=== PATIENT | male | born 1930 | race Caucasian/White ===

== ENCOUNTER 2017-04-24 13:55 | Emergency (ER) | payer MEDICARE, BC ==
[~2017-04-24 13:55] MED LIST: ALPR0.25 PO; APIX5TAB PO; ASPI81TA82 PO; BETH50TA PO; BIOT5000 PO; CALCTAB23 PO; CHRO200C PO; CO Q10CA PO; COLL500C PO; CRES20TA PO; DIGO0.25 PO; FURO1TAB93 PO; LATA.005%O EACH EYE; LEVE250 PO; LEVO50TA4 PO; LISI20 PO; LUTE6TAB PO; MAGN30TA2 PO; MECL25 PO; METO100 PO; MONT10 PO; NITR4.9S3 SL; PANT40IN3 PO; PENI250T PO; POTA-267 PO; SALM50I INH; SPIRCAP INH; VITATAB11 PO
[2017-04-24 13:59] VITALS: BP 144/75; PULSE 80; RESP 16; TEMP 97.9; O2SAT 97
--- NOTE | 2017-04-24 14:33 | PD ---
Physical Exam Time Seen by Provider: 14:32 Narrative 86 y/o male fell yesterday when attempting to prevent his from falling. He has an injury to the proximal L forearm. Vital signs reviewed. Seen at triage desk. Awaiting bed placement. Data Data Last Documented VS Vital Signs Date Time Temp Pulse Resp B/P Pulse Ox O2 Delivery O2 Flow Rate FiO2 04/24/17 13:59 97.9 80 16 144/75 97 Room Air [facility] Medical Record Reviewed: Yes Supervised Visit with DAMON: [place] Apr 24, 2017 14:33
== END 2017-04-24 15:42 | disposition left against medical advice (07) ==
LOC: NED 13:55
DX: S59.912A Unspecified injury of left forearm, initial encounter (principal); W19.XXXA Unspecified fall, initial encounter; Z53.21 Procedure and treatment not carried out due to patient leaving prior to being seen by health care provider
CPT/HCPCS: 99281

== ENCOUNTER 2017-07-20 11:17 | Observation (INO) | payer MEDICARE, BC, OTHER ==
[2017-07-20] VITALS (9 sets, daily range): BP systolic 123–182; BP diastolic 85–120; PULSE 103–116; RESP 13–24; TEMP 97.7–98.6; O2SAT 95–99
[~2017-07-20] VITALS: Ht 154.9 cm; Wt 67.2 kg
--- NOTE | 2017-07-20 11:41 | PD ---
HPI Chief Complaint: Respiratory Distress Time Seen by Provider: 11:25 Travel History International Travel<30 days: No Contact w/Intl Traveler<30days: No Traveled to known affect area: No History of Present Illness HPI [facility]. He has history of A. fib. At times he is short of breath. He denies productive cough or fever or chest pain. Severity is moderate. No alleviating factors. Duration one day. Symptoms are exacerbated by exertion. PFSH Past Medical History Hx Anticoagulant Therapy: Yes Arthritis: Yes (hands) Atrial Fibrillation: Yes Autoimmune Disease: No Anxiety: No Depression: Yes Heart Rhythm Problems: Yes (AFIB) Cancer: Yes (PROSTATE 1989 SKIN 1990) Cardiac Catheterization: Yes Cardiovascular Problems: Yes (AFIB) High Cholesterol: Yes Chemotherapy: Yes Congestive Heart Failure: Yes COPD: Yes Cerebrovascular Accident: Yes Coronary Artery Disease: Yes (1999) Diabetes: Yes Diminished Hearing: Yes (BILATERAL) Endocrine: No Gastrointestinal Disorders: Yes (GASTROPORESIS) GERD: Yes Glaucoma: Yes Genitourinary: Yes (RENAL ARTERY BLOCKED 95 % TO HAVE STENT IMPLANT) Hypertension: Yes Immune Disorder: No Implanted Vascular Access Dvce: Yes Musculoskeletal: Yes (OSTEOPOROSIS) Neurologic: Yes Psychiatric: Yes Reproductive: Yes (VASECTOMY 1962) Respiratory: Yes Integumentary: Yes (SKIN CA 1990) Immunizations Current: No Migraines: No Radiation Therapy: Yes (PROSTATE CA 1989) Seizures: Yes (On Keppra) Sleep Apnea: Yes Thyroid Disease: Yes Past Surgical History Body Medical Devices: rods, pins in r leg Cardiac Surgery: Yes Cholecystectomy: Yes Coronary Artery Bypass Graft: Yes Coronary Stent: Yes (X5) Ear Surgery: Yes (GLAUCOMA) Eye Surgery: Yes (LASER BOTH EYES) Genitourinary Surgery: Yes (RIGHT RENAL ARTERY STENT X2, benign bladder tumor) Oral Surgery: Yes (MAX RIDGE AUGMENTATION) Pacemaker: Yes ([employer] MODEL NUMBER [id number]) Tonsillectomy: Yes Other Surgery: Yes (TURP, RT HIP FX REPAIR) Social History Alcohol Use: No Tobacco Use: No Substance Use: No Allergies-Medications (Allergen,Severity, Reaction): Coded Allergies: diatrizoate meglumine (Unverified Allergy, Severe, 05/27/17) diltiazem (Unverified Allergy, Severe, Swelling, 05/27/17) gadobenic acid (Unverified Allergy, Severe, 05/27/17) gadodiamide (Unverified Allergy, Severe, 05/27/17) gadoteridol (Unverified Allergy, Severe, 05/27/17) iodixanol (Unverified Allergy, Severe, 05/27/17) iohexol (Unverified Allergy, Severe, 05/27/17) Uncoded Allergies: cardi (Allergy, Severe, Swelling, 02/05/13) Reported Meds & Prescriptions Reported Meds & Active Scripts Active Keppra (Levetiracetam) 250 Mg Tab 250 Mg PO BID 30 Days Antivert (Meclizine HCl) 25 Mg Tab 25 Mg PO Q8H PRN 14 Days Metoprolol Tartrate 100 Mg Tab 100 Mg PO BID 30 Days Prinivil 20 mg (Lisinopril) 20 Mg Tab 40 Mg PO DAILY 30 Days Reported Vitamin B Complex (B-Complex Vitamins) Tab 1 Tab PO DAILY Pen Vk (Penicillin V Potassium) 250 Mg Tab 250 Mg PO BID Levothyroxine 50 mcg (Levothyroxine Sodium) 50 Mcg Tab 50 Mcg PO DAILY Calcium 500 + D (Calcium Carbonate-Vitamin D) +D Tab 1 Tab PO DAILY Co Q 10 (Coenzyme Q10 (Ubidecarenone)) Unknown Strength Cap 1 Cap PO DAILY Chromium Picolinate Unknown Strength Tab 1 Tab PO DAILY Collagen Unknown Strength Cap 1 Cap PO DAILY Magnesium (Magnesium Gluconate) Unknown Strength Tab 1 Tab PO DAILY Biotin Unknown Strength Tab 1 Tab PO DAILY Lutein W/Zeaxanthin (Lutein-Zeaxanthin) 1 Tab Tab 1 Tab PO DAILY Pantoprazole Sodium 40 Mg Tab 40 Mg PO DAILY Bethanechol Chloride 50 Mg Tab 50 Mg PO QID Eliquis (Apixaban) 5 Mg Tab 5 Mg PO BID Alprazolam 0.25 Mg Tab 0.25 Mg PO TID PRN Nitrolingual 0.4 Mg Pumpspray (Nitroglycerin) 60 [place]/4.9 Gm [place] 1 [place] SL Q5M MAXIUMUM OF 3 DOSES IN 15 MINUTES.CALL MD IF CHEST PAIN NOT RELIEVED. Montelukast Sodium 10 Mg Tab 10 Mg PO HS Aspir-81 (Aspirin) 81 Mg Tab 81 Mg PO DAILY Digoxin 0.25 mg (Digoxin) 0.25 Mg Tab 0.25 Mg PO DAILY Lasix (Furosemide) 40 Mg Tab 40 Mg PO DAILY Klor-Con 10 (Potassium Chloride) 10 Meq Tab 10 Meq PO DAILY Crestor (Rosuvastatin Calcium) 20 Mg Tab 20 Mg PO HS Xalatan (Latanoprost) 0.005 % Soln 1 Drop EACH EYE HS Spiriva Handihaler (Tiotropium [place]) 18 Mcg Cap 1 Dose INH DAILY Serevent Diskus (Salmeterol Xinafoate) 50 Mcg Inhp 1 Puff INH BID Review of Systems General / Constitutional: No: Fever Eyes: No: Visual changes HENT: No: Headaches Cardiovascular: Positive: Irregular Rhythm, Tachycardia, No: Chest Pain or Discomfort Respiratory: Positive: Shortness of Breath Gastrointestinal: No: Abdominal Pain Genitourinary: No: Dysuria Musculoskeletal: No: Pain Skin: No Rash Neurologic: No: Weakness Psychiatric: No: Depression Endocrine: No: Polydipsia Hematologic/Lymphatic: No: Easy Bruising Physical Exam Narrative GENERAL: Elderly well-developed patient in no apparent distress. SKIN: Focused skin assessment reveals no rash and nodules. Skin is Warm and dry. HEAD: Atraumatic. Normocephalic. EYES: Pupils equal and round. No scleral icterus. No injection or drainage. ENT: No nasal bleeding or discharge. Mucous membranes pink and moist. NECK: Trachea midline. No JVD. CARDIOVASCULAR: Irregularly irregular rhythm. No murmur appreciated. Heart rate variable between 105 and 130 RESPIRATORY: No accessory muscle use. Diminished breath sounds in the bases with some scattered rhonchi . Breath sounds equal bilaterally. GASTROINTESTINAL: Abdomen soft, non-tender, nondistended. Hepatic and splenic margins not palpable. MUSCULOSKELETAL: No obvious deformities. No clubbing. No cyanosis. No pitting edema. NEUROLOGICAL: Awake and alert. No obvious cranial nerve deficits. Motor grossly within normal limits. Normal speech. PSYCHIATRIC: Appropriate mood and affect; insight and judgment reduced . Data Data Last Documented VS Vital Signs Date Time Temp Pulse Resp B/P (MAP) Pulse Ox O2 Delivery O2 Flow Rate FiO2 07/20/17 14:32 104 24 161/87 (111) 96 Room Air 07/20/17 11:26 98.6 Orders Orders Complete Blood Count With Diff (07/20/17 11:34) Basic Metabolic Panel (Bmp) (07/20/17 11:34) Iv Access Insert/Monitor (07/20/17 11:34) Electrocardiogram (07/20/17 11:34) Ecg Monitoring (07/20/17 11:34) Oximetry (07/20/17 11:34) Chest, Single Ap (07/20/17 11:34) Sodium Chloride 0.9% Flush (Ns Flush) (07/20/17 11:45) Metoprolol Tartrate Inj (Lopressor Inj) (07/20/17 11:45) Digoxin (07/20/17 11:41) Furosemide Inj (Lasix Inj) (07/21/17 09:00) Metoprolol Tartrate Inj (Lopressor Inj) (07/20/17 13:00) Furosemide Inj (Lasix Inj) (07/20/17 13:15) Metoprolol Tartrate Inj (Lopressor Inj) (07/20/17 14:15) Labs Laboratory Tests Test 07/20/17 11:43 White Blood Count 9.1 TH/MM3 Red Blood Count 4.19 MIL/MM3 Hemoglobin 13.5 GM/DL Hematocrit 40.1 % Mean Corpuscular Volume 95.8 FL Mean Corpuscular Hemoglobin 32.1 PG Mean Corpuscular Hemoglobin Concent 33.5 % Red Cell Distribution Width 13.8 % Platelet Count 189 TH/MM3 Mean Platelet Volume 9.1 FL Neutrophils (%) (Auto) 74.0 % Lymphocytes (%) (Auto) 14.5 % Monocytes (%) (Auto) 9.1 % Eosinophils (%) (Auto) 1.7 % Basophils (%) (Auto) 0.7 % Neutrophils # (Auto) 6.7 TH/MM3 Lymphocytes # (Auto) 1.3 TH/MM3 Monocytes # (Auto) 0.8 TH/MM3 Eosinophils # (Auto) 0.2 TH/MM3 Basophils # (Auto) 0.1 TH/MM3 CBC Comment DIFF FINAL Differential Comment Blood Urea Nitrogen 14 MG/DL Creatinine 0.56 MG/DL Random Glucose 104 MG/DL Calcium Level 7.6 MG/DL Sodium Level 137 MEQ/L Potassium Level 3.8 MEQ/L Chloride Level 105 MEQ/L Carbon Dioxide Level 24.7 MEQ/L Anion Gap 7 MEQ/L Estimat Glomerular Filtration Rate 137 ML/MIN Digoxin Level LESS THAN 0.1 NG/ML MDM Medical Decision Making Medical Screen Exam Complete: Yes Emergency Medical Condition: Yes Medical Record Reviewed: Yes Differential Diagnosis A. fib with RVR, COPD, CHF Narrative Course I have reviewed the patient's electronic medical record. Reviewed his most recent discharge summary. Patient was here for shortness of breath and 2016. Reviewed his [facility] paperwork and medication lists and last labs which were done about 2 weeks ago IV placed Patient has allergy to Cardizem I gave him a small dose of 1.25 mg IV Lopressor for rate control He is also hypertensive at the same time I reviewed his chest x-ray which suggest minor pulmonary edema I reviewed his EKG which shows A. fib at a rate of 124 Extended cardiac monitoring reveals A. fib with RVR CBC reasonable in all Metabolic profile is normal Digoxin level is negative Given his age I only gave him small doses of Lopressor. A second dose of 1.25 was given I then gave him a dose of 2.5 mg IV Lopressor I will observe him for several hours. His rate is much improved. His A. fib is chronic Currently he is bouncing around in the 90s Stable for outpatient follow-up. He feels well. He is breathing well I did give him 1 dose of IV Lasix He's had no chest discomfort of any type No clinical suspicion of ACS Diagnosis Primary Impression: Atrial fibrillation with RVR Additional Impression: Pulmonary edema Qualified Codes: J81.0 - Acute pulmonary edema Additional Instructions: Follow-up with [facility] physician Med/Other Pt SpecificInfo: Other Disposition: 03 DISCHARGE TO SNF Condition: Stable Rodrigo Garvin MD Jul 20, 2017 11:41
[2017-07-20] MEDS ORDERED: SODIUM CHLORIDE 0.9% FLUSH 10 ML FLUSH IVF PRN (11:45)
[2017-07-20] MEDS ORDERED: METOPROLOL TARTRATE 5 MG/5 ML VIAL IV PUSH ONE ×3 (11:45→14:15)
[2017-07-20 11:57] LABS: AUTOMATED NEUTROPHIL # 6.7 TH/MM3 (1.8-7.7); BASOPHIL # 0.1 TH/MM3 (0-0.2); BASOPHIL % 0.7 % (0.0-2.0); EOSINOPHIL # 0.2 TH/MM3 (0-0.4); EOSINOPHIL % 1.7 % (0.0-4.0); HEMATOCRIT 40.1 % (39.0-51.0); HEMO FLAGS DIFF FINAL; LYMPH % 14.5 % (9.0-44.0); LYMPHOCYTE # 1.3 TH/MM3 (1.0-4.8); MEAN CELL VOLUME 95.8 FL (80.0-100.0); MEAN CORPUSCULAR HEMOGLOBIN 32.1 PG (27.0-34.0); MEAN CORPUSCULAR HGB CONC 33.5 % (32.0-36.0); MONO % 9.1 % (0.0-8.0); PLATELET COUNT 189 TH/MM3 (150-450); RED BLOOD COUNT 4.19 MIL/MM3 (4.50-5.90); RED CELL DISTRIBUTION WIDTH 13.8 % (11.6-17.2); WHITE BLOOD COUNT 9.1 TH/MM3 (4.0-11.0)
--- NOTE | 2017-07-20 12:10 | RADRPT ---
EXAM DATE/TIME: 07/20/2017 11:38 [place] COMPARISON: CHEST SINGLE AP, April 30, 2016, 13:21. INDICATIONS : Short of breath MEDICAL HISTORY : Chronic obstructive pulmonary disease. Congestive heart failure. Cardiovascular disease. Gerd, Tom ts esophagus, A-fib SURGICAL HISTORY : Pacemaker. coronary artery stents ENCOUNTER: Initial ACUITY: 2 weeks PAIN SCORE: 0/10 LOCATION: chest FINDINGS: The heart is enlarged. There are small bilateral effusions and diffuse interstitial prominence sugges ting congestive failure. These findings are new compared to prior dated 04/30/16. The are is a transvenous pacer in place. The bony structures are intact. CONCLUSION: 1. Probable CHF. Antonio Gambino MD on July 20, 2017 at 12:08 Board Certified Radiologist. This report was verified electronically.
[2017-07-20 12:19] LABS: BICARBONATE 24.7 MEQ/L (21.0-32.0); POTASSIUM 3.8 MEQ/L (3.5-5.1)
--- NOTE | 2017-07-20 12:55 | EKG ---
Date Performed: 07/20/2017 Time Performed: 11:34:37 PTAGE: 87 years EKG: ATRIAL FIBRILLATION WITH RAPID VENTRICULAR RESPONSE LOW QRS VOLTAGE IN EXTREMITY LEADS MODE RATE ST DEPRESSION ABNORMAL ECG INTERPRETATION BASED ON A DEFAULT AGE OF 40 YEARS PREVIOUS TRACING : 04/30/2016 13.13 DOCTOR: Heber Herrera Interpretating Date/Time 07/20/2017 12:54:27
[2017-07-20] MEDS ORDERED: FUROSEMIDE 40 MG/4 ML VIAL IV PUSH ONE (13:15)
--- NOTE | 2017-07-20 18:05 | HHI.HP ---
[facility] Gallito Valdez MD Admission Diagnosis afib with RVR, exac of CHF Diagnoses: (1) Atrial fibrillation with RVR Diagnosis: Principal (2) CHF (congestive heart failure) Diagnosis: Secondary Chief Complaint: "Because they ([facility]) sent me in here." Travel History International Travel<30 Days: No Contact w/Intl Traveler <30 Da: No Traveled to Known Affected Are: No History of Present Illness Mr. Beck is 87 yo, with history inclusive of Atrial fibrillation, CHF , COPD, CVA, DM II, Renal artery occlusion (requiring stenting). Mr. Beck was in his usual state of health until 07/20/17 when he was sent to [facility] from his halfway for reported shortness of breath. Mr. Beck stated he was unsure why he sent to the hospital. At time of interview he denied cough, shortness of breath, chest/abdominal pain, fever, and malaise. He was asked about his allergies and he said "I have a few" and could not identify them. He was specifically asked about Cardizem and said "I don;t think so." At time of interview, Mr. Beck said he was urinating "just fine" having reported filled "two of those things (urinals) since I got here and I'm working on the third one right now". Per ED physician, Mr. Beck was noted to have atrial fibrillation with RVR as well as mild CHF exacerbation without significant shortness of breath and was not requiring supplemental oxygen as pt was 95-97% oxygenation on room air. Pt had received Lasix 40 mg IV as well as Lopressor 1.25 mg IV x2 and Lopressor 2.5 mg IV . Review of Systems Constitutional: DENIES: Chills, Dizziness Endocrine: DENIES: Heat/cold intolerance Eyes: DENIES: Eye pain, Double Vision Ears, nose, mouth, throat: COMPLAINS OF: Hearing loss Respiratory: COMPLAINS OF: Shortness of breath, DENIES: Cough Cardiovascular: COMPLAINS OF: Dyspnea on Exertion, DENIES: Chest pain, Palpitations Gastrointestinal: DENIES: Abdominal pain, Constipation, Diarrhea, Nausea Musculoskeletal: DENIES: Joint pain, Stiffness Integumentary: COMPLAINS OF: Abnormal pigmentation (Mole left groin "has been around for ever. My doctor said I can keep that one.") Immunologic/allergic: DENIES: Urticaria Psychiatric: DENIES: Anxiety Except as stated in HPI: all other systems reviewed are Neg Past Family Social History Past Medical History Arthritis Atrial fibrillation CHF COPD CVA Depression Diabetes Glaucoma Prostate cancer (1989) Renal artery stenosis (requiring stenting) Seizures Skin cancer (1990) Past Surgical History Vasectomy (1964) Bilateral eye surgery Reported Medications Reported Meds & Active Scripts Active Keppra (Levetiracetam) 250 Mg Tab 250 Mg PO BID 30 Days Antivert (Meclizine HCl) 25 Mg Tab 25 Mg PO Q8H PRN 14 Days Metoprolol Tartrate 100 Mg Tab 100 Mg PO BID 30 Days Prinivil 20 mg (Lisinopril) 20 Mg Tab 40 Mg PO DAILY 30 Days Reported Vitamin B Complex (B-Complex Vitamins) Tab 1 Tab PO DAILY Pen Vk (Penicillin V Potassium) 250 Mg Tab 250 Mg PO BID Levothyroxine 50 mcg (Levothyroxine Sodium) 50 Mcg Tab 50 Mcg PO DAILY Calcium 500 + D (Calcium Carbonate-Vitamin D) +D Tab 1 Tab PO DAILY Co Q 10 (Coenzyme Q10 (Ubidecarenone)) Unknown Strength Cap 1 Cap PO DAILY Chromium Picolinate Unknown Strength Tab 1 Tab PO DAILY Collagen Unknown Strength Cap 1 Cap PO DAILY Magnesium (Magnesium Gluconate) Unknown Strength Tab 1 Tab PO DAILY Biotin Unknown Strength Tab 1 Tab PO DAILY Lutein W/Zeaxanthin (Lutein-Zeaxanthin) 1 Tab Tab 1 Tab PO DAILY Pantoprazole Sodium 40 Mg Tab 40 Mg PO DAILY Bethanechol Chloride 50 Mg Tab 50 Mg PO QID Eliquis (Apixaban) 5 Mg Tab 5 Mg PO BID Alprazolam 0.25 Mg Tab 0.25 Mg PO TID PRN Nitrolingual 0.4 Mg Pumpspray (Nitroglycerin) 60 [place]/4.9 Gm [place] 1 [place] SL Q5M MAXIUMUM OF 3 DOSES IN 15 MINUTES.CALL MD IF CHEST PAIN NOT RELIEVED. Montelukast Sodium 10 Mg Tab 10 Mg PO HS Aspir-81 (Aspirin) 81 Mg Tab 81 Mg PO DAILY Digoxin 0.25 mg (Digoxin) 0.25 Mg Tab 0.25 Mg PO DAILY Lasix (Furosemide) 40 Mg Tab 40 Mg PO DAILY Klor-Con 10 (Potassium Chloride) 10 Meq Tab 10 Meq PO DAILY Crestor (Rosuvastatin Calcium) 20 Mg Tab 20 Mg PO HS Xalatan (Latanoprost) 0.005 % Soln 1 Drop EACH EYE HS Spiriva Handihaler (Tiotropium [place]) 18 Mcg Cap 1 Dose INH DAILY Serevent Diskus (Salmeterol Xinafoate) 50 Mcg Inhp 1 Puff INH BID Allergies: Coded Allergies: diatrizoate meglumine (Unverified Allergy, Severe, 05/27/17) gadobenic acid (Unverified Allergy, Severe, 05/27/17) gadodiamide (Unverified Allergy, Severe, 05/27/17) gadoteridol (Unverified Allergy, Severe, 05/27/17) iodixanol (Unverified Allergy, Severe, 05/27/17) iohexol (Unverified Allergy, Severe, 05/27/17) Active Ordered Medications Current Medications Medications (Trade) Dose Ordered Sig/Jihan Route Start Time Stop Time Status Last Admin (NS Flush) 2 ml UNSCH PRN IVF 07/20/17 11:45 Family History Sister-COPD, depression, anxiety, breast cancer. Brother-diabetes, liver cancer. Father/mother-heart disease. Social History Patient denied history of alcohol use. Continue use was denied. Illicit/recreational drug use was denied. Physical Exam Vital Signs Vital Signs Date Time Temp Pulse Resp B/P (MAP) Pulse Ox O2 Delivery O2 Flow Rate FiO2 07/20/17 17:17 102 19 164/85 (111) 97 07/20/17 14:32 104 24 161/87 (111) 96 Room Air 07/20/17 14:11 114 13 182/99 (126) 97 Room Air 07/20/17 13:13 103 24 173/93 (119) 98 Room Air 07/20/17 11:26 98.6 114 21 163/90 (114) 97 Room Air 07/20/17 11:26 Room Air Physical Exam GENERAL: This is a well-nourished, well-developed patient, in no apparent distress. SKIN: No rashes or ecchymoses. Nevus noted in left groin. Cool and dry. HEAD: Atraumatic. Normocephalic. No temporal or scalp tenderness. EYES: Pupils equal round and reactive. Extraocular motions intact. No scleral icterus. No injection or drainage. ENT: Nose without bleeding or purulent drainage. Airway patent. NECK: Trachea midline. No lymphadenopathy. Supple and nontender. CARDIOVASCULAR: Regular rate with irregularly irregular rhythm without murmurs, gallops, or rubs. RESPIRATORY: Clear to auscultation. Breath sounds equal bilaterally. No wheezes , rales, or rhonchi. GASTROINTESTINAL: Abdomen soft, non-tender, nondistended. No hepato- splenomegaly or guarding. MUSCULOSKELETAL: Extremities without clubbing, cyanosis, or edema. NEUROLOGICAL: Awake and alert. Cranial nerves II through XII intact. Motor and sensory grossly within normal limits. Five out of 5 muscle strength in all muscle groups. Speech clear and fluent. Patient hard of hearing. Laboratory Laboratory Tests Test 07/20/17 11:43 White Blood Count 9.1 Red Blood Count 4.19 Hemoglobin 13.5 Hematocrit 40.1 Mean Corpuscular Volume 95.8 Mean Corpuscular Hemoglobin 32.1 Mean Corpuscular Hemoglobin Concent 33.5 Red Cell Distribution Width 13.8 Platelet Count 189 Mean Platelet Volume 9.1 Neutrophils (%) (Auto) 74.0 Lymphocytes (%) (Auto) 14.5 Monocytes (%) (Auto) 9.1 Eosinophils (%) (Auto) 1.7 Basophils (%) (Auto) 0.7 Neutrophils # (Auto) 6.7 Lymphocytes # (Auto) 1.3 Monocytes # (Auto) 0.8 Eosinophils # (Auto) 0.2 Basophils # (Auto) 0.1 CBC Comment DIFF FINAL Differential Comment Blood Urea Nitrogen 14 Creatinine 0.56 Random Glucose 104 Calcium Level 7.6 Sodium Level 137 Potassium Level 3.8 Chloride Level 105 Carbon Dioxide Level 24.7 Anion Gap 7 Estimat Glomerular Filtration Rate 137 Digoxin Level LESS THAN 0.1 Result Diagram: 07/20/17 1143 07/20/17 1143 Imaging Last Impressions Chest X-Ray 07/20/17 1134 Signed Impressions: Service Date/Time: Thursday, July 20, 2017 11:38 - CONCLUSION: 1. Probable CHF. MD David Chandra VTE Risk Assessment Caprini VTE Risk Assessment: Mod/High Risk (score >= 2) Caprini Risk Assessment Model Point Value = 1 Point Value = 2 Point Value = 3 Point Value = 5 Age 41-60 Minor surgery BMI > 25 kg/m2 Swollen legs Varicose veins or History of unexplained or recurrent spontaneous Oral contraceptives or hormone replacement Sepsis (< 1 month) Serious lung disease, including pneumonia (< 1 month) Abnormal pulmonary function Acute myocardial infarction Congestive heart failure (< 1 month) History of inflammatory bowel disease Medical patient at bed rest Age 61-74 Arthroscopic surgery Major open surgery (> 45 min) Laparoscopic surgery (> 45 min) Malignancy Confined to bed (> 72 hours) Immobilizing plaster cast Central venous access Age >= 75 History of VTE Family history of VTE Factor V Leiden Prothrombin [id number] Lupus anticoagulant Anticardiolipin antibodies Elevated serum homocysteine Heparin-induced thrombocytopenia Other congenital or acquired thrombophilia Stroke (< 1 month) Elective arthroplasty Hip, pelvis, or leg fracture Acute spinal cord injury (< 1 month) Prophylaxis Regimen Total Risk Factor Score Risk Level Prophylaxis Regimen 0-1 Low Early ambulation 2 Moderate Order ONE of the following: *Sequential Compression Device (SCD) *Heparin 5000 units SQ BID 3-4 Higher Order ONE of the following medications: *Heparin 5000 units SQ TID *Enoxaparin/Lovenox 40 mg SQ daily (WT < 150 kg, CrCl > 30 mL/min) *Enoxaparin/Lovenox 30 mg SQ daily (WT < 150 kg, CrCl > 10-29 mL/min) *Enoxaparin/Lovenox 30 mg SQ BID (WT < 150 kg, CrCl > 30 mL/min) AND/OR *Sequential Compression Device (SCD) 5 or more Highest Order ONE of the following medications: *Heparin 5000 units SQ TID (Preferred with Epidurals) *Enoxaparin/Lovenox 40 mg SQ daily (WT < 150 kg, CrCl > 30 mL/min) *Enoxaparin/Lovenox 30 mg SQ daily (WT < 150 kg, CrCl > 10-29 mL/min) *Enoxaparin/Lovenox 30 mg SQ BID (WT < 150 kg, CrCl > 30 mL/min) AND *Sequential Compression Device (SCD) Assessment and Plan Problem List: (1) CHF (congestive heart failure) ICD Code: I50.9 - Heart failure, unspecified Status: Chronic (2) Atrial fibrillation with RVR ICD Code: I48.91 - Unspecified atrial fibrillation Status: Acute Assessment and Plan Mr. Beck is 87 yo, with history inclusive of Atrial fibrillation, CHF , COPD, CVA, DM II, Renal artery occlusion (requiring stenting). Mr. Beck was in his usual state of health until 07/20/17 when he was sent to [facility] from his halfway for reported shortness of breath. Atrial fibrillation with RVR CHF Hypertension -Admit for observation. -Cardizem 30 mg by mouth every 6 hours -Magnesium lab ordered for 07/20/17 -CMP in the a.m. -Thyroid panel in the a.m. -Check magnesium and phosphorus labs ordered for the morning -Check CPK in the morning -2-D echo -Serial troponins -Place on cardiac telemetry -Follow-up EKG in the morning -Lasix 40 mg by mouth daily -Lisinopril 40 mg by mouth daily -Metoprolol tartrate 100 mg by mouth twice a day CONSULT CARDIO COPD -Montelukast 10 mg by mouth at bedtime -Spiriva 18 microgram inhaled daily -Serevent 50 micrograms twice a day inhaled Seizures -Keppra 250 mg by mouth twice a day Hypothyroidism -2 both rock seen 50 micrograms by mouth daily Diet -Healthy heart GI prophylaxis -Protonix 40 mg daily DVT prophylaxis -Apixaban 5 mg twice a day by mouth PT AND OT TO EVAL The exam, history, and the medical decision-making described in the above note were completed with the assistance of the mid-level provider. I reviewed and agree with the findings presented. I attest that I had a [id number] encounter with the patient on the same day, and personally performed and documented my assessment and findings in the medical record. Code Status Full code Discussed Condition With Patient and ED team Problem Qualifiers (1) CHF (congestive heart failure): Qualified Codes: I50.9 - Heart failure, unspecified Ye Restrepo Jr. Jul 20, 2017 18:05 Santiago Anand DO Jul 20, 2017 18:55
[2017-07-20] MEDS ORDERED: NALOXONE HCL 0.4 MG/ML AMP IV PUSH PRN (18:30)
[2017-07-20] MEDS ORDERED: MORPHINE SULFATE 4 MG/ML INJ IV PUSH PRN ×2 (18:30)
[2017-07-20] MEDS ORDERED: MAGNESIUM HYDROXIDE SUSP 30 ML CUP PO PRN (18:30)
[2017-07-20] MEDS ORDERED: BISACODYL 10 MG SUPP RECTAL PRN (18:30)
[2017-07-20] MEDS ORDERED: traMADol HCL 50 MG TAB PO PRN ×2 (18:30)
[2017-07-20] MEDS ORDERED: SENNOSIDES 8.6 MG TAB PO PRN (18:30)
[2017-07-20] MEDS ORDERED: SODIUM CHLORIDE 0.9% FLUSH 10 ML FLUSH IV FLUSH PRN ×2 (18:30)
[2017-07-20] MEDS ORDERED: LACTULOSE SYRUP 20 GM/30 ML CUP PO PRN (18:30)
[2017-07-20] MEDS ORDERED: ONDANSETRON HCL 4 MG/2 ML VIAL IVP PRN (18:30)
[2017-07-20] MEDS ORDERED: ACETAMINOPHEN 325 MG TAB PO PRN ×2 (18:30)
[2017-07-20] MEDS ORDERED: PROCHLORPERAZINE 25 MG SUPP RECTAL PRN (18:30)
[2017-07-20] MEDS ORDERED: MECLIZINE HCL 25 MG TAB PO PRN (18:45)
[2017-07-20] MEDS ORDERED: ALPRAZolam 0.25 MG TAB PO PRN (18:45)
[2017-07-20] MEDS: DILTIAZEM HCL 30 MG TAB PO SCH ×2 (18:49→23:48)
[2017-07-20] MEDS ORDERED: LATANOPROST 0.005% OPHT SOLN 2.5 ML BTL EACH EYE SCH (21:00)
[2017-07-20] MEDS ORDERED: SODIUM CHLORIDE 0.9% FLUSH 10 ML FLUSH IV FLUSH SCH (21:00)
[2017-07-20] MEDS ORDERED: ATORVASTATIN 40 MG TAB PO SCH (21:00)
[2017-07-20] MEDS ORDERED: MONTELUKAST SODIUM 10 MG TAB PO SCH (21:00)
[2017-07-20] MEDS: DOCUSATE SODIUM 50 MG/SENNA 8.6 MG TAB PO SCH (21:37)
[2017-07-20] MEDS: BETHANECHOL CHL 25 MG TAB PO SCH (21:37)
[2017-07-20] MEDS: METOPROLOL TARTRATE 100 MG TAB PO SCH (21:38)
[2017-07-20] MEDS: APIXABAN 5 MG TABLET PO SCH (21:39)
[2017-07-20] MEDS: PENICILLIN V POTASSIUM 250 MG TAB PO SCH (21:43)
[2017-07-20] MEDS: levETIRAcetam 250 MG TAB PO SCH (21:44)
[2017-07-20] MEDS: SALMETEROL XINAFOATE 50 MCG DISKUS INH SCH (21:45)
[2017-07-20] MEDS: SODIUM CHLORIDE 0.9% FLUSH 10 ML FLUSH IV FLUSH SCH (21:47)
[2017-07-21] VITALS: BP 135/73; PULSE 69; RESP 20; TEMP 98.2; O2SAT 95
[2017-07-21 01:28] LABS: ALT (GPT) 22 U/L (12-78); ANION GAP 8 MEQ/L (5-15); AST (GOT) 23 U/L (15-37); BICARBONATE 25.9 MEQ/L (21.0-32.0); BLOOD UREA NITROGEN 14 MG/DL (7-18); CHLORIDE 102 MEQ/L (98-107); GLOMERULAR FILTRATION RATE 127 ML/MIN (>89); MAGNESIUM 2.1 MG/DL (1.5-2.5); POTASSIUM 3.7 MEQ/L (3.5-5.1); SODIUM (NA) 136 MEQ/L (136-145)
[2017-07-21 01:36] LABS: ALKALINE PHOSPHATASE 159 U/L (45-117); TOTAL BILIRUBIN ADULT 0.6 MG/DL (0.2-1.0)
[2017-07-21 01:45] LABS: CREATINE KINASE 45 U/L (39-308)
[2017-07-21 03:38] VITALS: PULSE 96
[2017-07-21 04:00] VITALS: BP 145/71; PULSE 70; RESP 20; TEMP 98; O2SAT 95
[2017-07-21] MEDS: DILTIAZEM HCL 30 MG TAB PO SCH ×2 (04:37→12:27)
[2017-07-21] MEDS ORDERED: PANTOPRAZOLE SOD 40 MG DELAYED RELEASE TAB PO SCH (06:00)
[2017-07-21] MEDS ORDERED: LEVOTHYROXINE SODIUM 50 MCG TAB PO SCH (06:00)
[2017-07-21 07:38] VITALS: O2SAT 97
[2017-07-21 08:00] VITALS: BP 135/79; PULSE 72; RESP 20; TEMP 97.8; O2SAT 96
[2017-07-21 08:58] LABS: AUTOMATED NEUTROPHIL # 7.6 TH/MM3 (1.8-7.7); BASOPHIL # 0.1 TH/MM3 (0-0.2); BASOPHIL % 0.7 % (0.0-2.0); EOSINOPHIL # 0.1 TH/MM3 (0-0.4); EOSINOPHIL % 1.4 % (0.0-4.0); HEMATOCRIT 39.9 % (39.0-51.0); HEMO FLAGS DIFF FINAL; LYMPH % 13.9 % (9.0-44.0); LYMPHOCYTE # 1.4 TH/MM3 (1.0-4.8); MEAN CORPUSCULAR HEMOGLOBIN 31.9 PG (27.0-34.0); MEAN CORPUSCULAR HGB CONC 33.6 % (32.0-36.0); MONO % 9.4 % (0.0-8.0); NEUT % 74.6 % (16.0-70.0); PLATELET COUNT 206 TH/MM3 (150-450); WHITE BLOOD COUNT 10.1 TH/MM3 (4.0-11.0)
[2017-07-21] MEDS ORDERED: MAGNESIUM GLUCONATE PO SCH (09:00)
[2017-07-21] MEDS ORDERED: ASPIRIN 81 MG CHEW TAB PO SCH (09:00)
[2017-07-21] MEDS ORDERED: TIOTROPIUM BROMIDE 18 MCG INH INH SCH (09:00)
[2017-07-21] MEDS: SODIUM CHLORIDE 0.9% FLUSH 10 ML FLUSH IV FLUSH SCH (09:00)
[2017-07-21] MEDS ORDERED: CHROMIUM PICOLINATE PO SCH (09:00)
[2017-07-21] MEDS ORDERED: FUROSEMIDE 40 MG TAB PO SCH (09:00)
[2017-07-21] MEDS ORDERED: MULTIVITAMIN-OPHTHALMIC 1 TAB PO SCH (09:00)
[2017-07-21] MEDS ORDERED: CALCIUM/VITAMIN D 250 MG/125 U TAB PO SCH (09:00)
[2017-07-21] MEDS ORDERED: LISINOPRIL 20 MG TAB PO SCH (09:00)
[2017-07-21] MEDS ORDERED: FUROSEMIDE 40 MG/4 ML VIAL IV PUSH SCH (09:00)
[2017-07-21] MEDS ORDERED: NON-FORMULARY DRUG (Coenzyme Q10 (Ubidecarenone) (Co Q 10) 1 CAP) PO SCH (09:00)
[2017-07-21] MEDS ORDERED: VITAMIN B COMPLEX/VIT C TAB PO SCH (09:00)
[2017-07-21] MEDS ORDERED: BIOTIN PO SCH (09:00)
[2017-07-21] MEDS ORDERED: POTASSIUM CHLORIDE 10 MEQ CONTROLLED RELEASE TAB PO SCH (09:00)
[2017-07-21] MEDS: APIXABAN 5 MG TABLET PO SCH (09:00)
[2017-07-21] MEDS: SALMETEROL XINAFOATE 50 MCG DISKUS INH SCH (09:02)
[2017-07-21] MEDS: levETIRAcetam 250 MG TAB PO SCH (09:04)
[2017-07-21] MEDS: PENICILLIN V POTASSIUM 250 MG TAB PO SCH (09:05)
[2017-07-21] MEDS: METOPROLOL TARTRATE 100 MG TAB PO SCH (09:05)
[2017-07-21] MEDS: BETHANECHOL CHL 25 MG TAB PO SCH ×2 (09:05→12:27)
[2017-07-21] MEDS: DOCUSATE SODIUM 50 MG/SENNA 8.6 MG TAB PO SCH (09:07)
[2017-07-21 09:55] LABS: HEMOGLOBIN A1b 0.8 %; HEMOGLOBIN Ao 84.6 %; HEMOGLOBIN P3 5.4 %
--- NOTE | 2017-07-21 11:18 | HHI.PR ---
Subjective Remarks Mr. Beck is 87 yo, with history inclusive of Atrial fibrillation, CHF , COPD, CVA, DM II, Renal artery occlusion (requiring stenting). Mr. Beck was in his usual state of health until 07/20/17 when he was sent to [facility] from his detention for reported shortness of breath. Mr. Beck stated he was unsure why he sent to the hospital. At time of interview he denied cough, shortness of breath, chest/abdominal pain, fever, and malaise. He was asked about his allergies and he said "I have a few" and could not identify them. He was specifically asked about Cardizem and said "I don;t think so." At time of interview, Mr. Beck said he was urinating "just fine" having reported filled "two of those things (urinals) since I got here and I'm working on the third one right now". Per ED physician, Mr. Beck was noted to have atrial fibrillation with RVR as well as mild CHF exacerbation without significant shortness of breath and was not requiring supplemental oxygen as pt was 95-97% oxygenation on room air. Pt had received Lasix 40 mg IV as well as Lopressor 1.25 mg IV x2 and Lopressor 2.5 mg IV . 10-9 WAS STARTED ON CARDIZEM 30MG PO Q6H WITH GOOD CONTROL OF HEART RATE DW RN AND PT AND FAMILY AWAIT CARDIOLOGY CONSULT IF CLEARED BY CARDIOLOGY CAN BE DCED TO HOME NO TRUE ALLERGY TO CARDIZEM 3008 FILLED OUT CAN HOPEFULLY GO BACK TO HIS SNF LATER TODAY Objective Vitals Vital Signs Date Time Temp Pulse Resp B/P (MAP) Pulse Ox O2 Delivery O2 Flow Rate FiO2 07/21/17 08:00 97.8 72 20 135/79 (97) 96 07/21/17 07:38 97 21 07/21/17 04:00 98.0 70 20 145/71 (95) 95 07/21/17 03:38 96 07/21/17 00:00 98.2 69 20 135/73 (93) 95 07/20/17 20:00 97.7 116 22 123/85 (98) 95 07/20/17 19:58 07/20/17 19:25 106 20 173/89 (117) 99 Room Air 07/20/17 19:19 96 21 07/20/17 18:40 111 17 171/120 (137) 98 Room Air 07/20/17 17:17 102 19 164/85 (111) 97 07/20/17 14:32 104 24 161/87 (111) 96 Room Air 07/20/17 14:11 114 13 182/99 (126) 97 Room Air 07/20/17 13:13 103 24 173/93 (119) 98 Room Air 07/20/17 11:26 98.6 114 21 163/90 (114) 97 Room Air 07/20/17 11:26 Room Air I/O 07/20/17 07/20/17 07/20/17 07/21/17 07/21/17 07/21/17 07:00 15:00 23:00 07:00 15:00 23:00 Intake Total 120 ml Output Total 1900 ml Balance -1900 ml 120 ml Intake Oral 120 ml Output Urine Total 1900 ml # Voids 4 3 1 Result Diagram: 07/21/17 0726 07/21/17 0039 Other Results Laboratory Tests Test 07/20/17 11:43 07/20/17 19:15 07/21/17 00:39 07/21/17 07:26 White Blood Count 9.1 TH/MM3 10.1 TH/MM3 Red Blood Count 4.19 MIL/MM3 4.20 MIL/MM3 Hemoglobin 13.5 GM/DL 13.4 GM/DL Hematocrit 40.1 % 39.9 % Mean Corpuscular Volume 95.8 FL 95.0 FL Mean Corpuscular Hemoglobin 32.1 PG 31.9 PG Mean Corpuscular Hemoglobin Concent 33.5 % 33.6 % Red Cell Distribution Width 13.8 % 14.0 % Platelet Count 189 TH/MM3 206 TH/MM3 Mean Platelet Volume 9.1 FL 9.3 FL Neutrophils (%) (Auto) 74.0 % 74.6 % Lymphocytes (%) (Auto) 14.5 % 13.9 % Monocytes (%) (Auto) 9.1 % 9.4 % Eosinophils (%) (Auto) 1.7 % 1.4 % Basophils (%) (Auto) 0.7 % 0.7 % Neutrophils # (Auto) 6.7 TH/MM3 7.6 TH/MM3 Lymphocytes # (Auto) 1.3 TH/MM3 1.4 TH/MM3 Monocytes # (Auto) 0.8 TH/MM3 1.0 TH/MM3 Eosinophils # (Auto) 0.2 TH/MM3 0.1 TH/MM3 Basophils # (Auto) 0.1 TH/MM3 0.1 TH/MM3 CBC Comment DIFF FINAL DIFF FINAL Differential Comment Blood Urea Nitrogen 14 MG/DL 14 MG/DL Creatinine 0.56 MG/DL 0.60 MG/DL Random Glucose 104 MG/DL 96 MG/DL Calcium Level 7.6 MG/DL 8.2 MG/DL Sodium Level 137 MEQ/L 136 MEQ/L Potassium Level 3.8 MEQ/L 3.7 MEQ/L Chloride Level 105 MEQ/L 102 MEQ/L Carbon Dioxide Level 24.7 MEQ/L 25.9 MEQ/L Anion Gap 7 MEQ/L 8 MEQ/L Estimat Glomerular Filtration Rate 137 ML/MIN 127 ML/MIN Digoxin Level LESS THAN 0.1 NG/ML Magnesium Level 2.0 MG/DL 2.1 MG/DL Total Creatine Kinase 86 U/L 45 U/L Troponin I 0.02 NG/ML 0.03 NG/ML Total Protein 6.0 GM/DL Albumin 3.0 GM/DL Phosphorus Level 3.5 MG/DL Alkaline Phosphatase 159 U/L Aspartate Amino Transf (AST/SGOT) 23 U/L Alanine Aminotransferase (ALT/SGPT) 22 U/L Total Bilirubin 0.6 MG/DL Hemoglobin A1c 6.3 % Free Thyroxine 1.20 NG/DL Thyroid Stimulating Hormone 3rd Gen 2.850 uIU/ML Imaging Last Impressions Chest X-Ray 07/20/17 1134 Signed Impressions: Service Date/Time: Thursday, July 20, 2017 11:38 - CONCLUSION: 1. Probable CHF. Antonio Gambino MD Objective Remarks GENERAL: This is a well-nourished, well-developed patient, in no apparent distress. SKIN: No rashes or ecchymoses. Nevus noted in left groin. Cool and dry. HEAD: Atraumatic. Normocephalic. No temporal or scalp tenderness. EYES: Pupils equal round and reactive. Extraocular motions intact. No scleral icterus. No injection or drainage. ENT: Nose without bleeding or purulent drainage. Airway patent.TONGUE MIDLINE NECK: Trachea midline. No lymphadenopathy. Supple and nontender. CARDIOVASCULAR: IRRegular rate with irregularly irregular rhythm without murmurs , gallops, or rubs. S1, S2 NO S3 OR S4 RESPIRATORY: Clear to auscultation. Breath sounds equal bilaterally. No wheezes , rales, or rhonchi. GASTROINTESTINAL: Abdomen soft, non-tender, nondistended. No hepato- splenomegaly or guarding. MUSCULOSKELETAL: Extremities without clubbing, cyanosis, SOME LE EDEMA BL NEUROLOGICAL: Awake and alert. Cranial nerves II through XII intact. Motor and sensory grossly within normal limits. Five out of 5 muscle strength in all muscle groups. Speech clear and fluent. Patient hard of hearing. INSIGHT AND JUDGEMENT ARE GOOD, MOOD AND BEHAVIOR IS APPROPRIATE Medications and IVs Current Medications Sodium Chloride (NS Flush) 2 ml UNSCH PRN IVF FLUSH AFTER USING IV ACCESS; Start 07/20/17 at 11:45; Stop 07/20/17 at 18:56; Status DC Metoprolol Tartrate (Lopressor Inj) 1.25 mg ONCE ONCE IV PUSH Last administered on 07/20/17 11:46; Start 07/20/17 at 11:45; Stop 07/20/17 at 11:46 ; Status DC Furosemide (Lasix Inj) 40 mg DAILY IV PUSH ; Start 07/21/17 at 09:00; Stop 07/21 at 09:00; Status DC Metoprolol Tartrate (Lopressor Inj) 1.25 mg ONCE ONCE IV PUSH Last administered on 07/20/17 13:15; Start 07/20/17 at 13:00; Stop 07/20/17 at 13:01 ; Status DC Furosemide (Lasix Inj) 40 mg ONCE ONCE IV PUSH Last administered on 07/20/17 13:15; Start 07/20/17 at 13:15; Stop 07/20/17 at 13:16; Status DC Metoprolol Tartrate (Lopressor Inj) 2.5 mg ONCE ONCE IV PUSH Last administered on 07/20/17 14:08; Start 07/20/17 at 14:15; Stop 07/20/17 at 14:16 ; Status DC Diltiazem HCl (Cardizem) 30 mg Q6HR PO Last administered on 07/21/17 04:37; Start 07/20/17 at 18:30 Sodium Chloride (NS Flush) 2 ml UNSCH PRN IV FLUSH FLUSH AFTER USING IV ACCESS ; Start 07/20/17 at 18:30; Stop 07/20/17 at 18:56; Status DC Sodium Chloride (NS Flush) 2 ml BID IV FLUSH ; Start 07/20/17 at 21:00; Stop at 21:00; Status DC Sodium Chloride (NS Flush) 2 ml UNSCH PRN IV FLUSH FLUSH AFTER USING IV ACCESS ; Start 07/20/17 at 18:30 Sodium Chloride (NS Flush) 2 ml BID IV FLUSH Last administered on 07/20/17 21: 47; Start 07/20/17 at 21:00 Acetaminophen (Tylenol) 650 mg Q4H PRN PO TEMP > 100.4; Start 07/20/17 at 18:30 Ondansetron HCl (Zofran Inj) 4 mg Q6H PRN IVP NAUSEA OR VOMITING; Start at 18:30 Prochlorperazine (Compazine Supp) 25 mg Q12H PRN RECTAL SEE LABEL COMMENTS; Start 07/20/17 at 18:30 Acetaminophen (Tylenol) 650 mg Q6H PRN PO PAIN SCALE 1 TO 2; Start 07/20/17 at 18:30 Morphine Sulfate (Morphine Inj) 2 mg Q3H PRN IV PUSH Pain 3-5; if unable to take PO; Start 07/20/17 at 18:30 Morphine Sulfate (Morphine Inj) 4 mg Q3H PRN IV PUSH Pain 6-10;if unable to take PO; Start 07/20/17 at 18:30 Tramadol HCl (Ultram) 50 mg Q4H PRN PO PAIN SCALE 3 TO 5; Start 07/20/17 at 18: 30 Tramadol HCl (Ultram) 100 mg Q4H PRN PO PAIN SCALE 6 TO 10; Start 07/20/17 at 18:30 Naloxone HCl (Narcan Inj) 0.4 mg UNSCH PRN IV PUSH SEE LABEL COMMENTS; Start 07/20/17 at 18:30 Senna/Docusate Sodium (Pina-Colace) 1 tab BID PO Last administered on 09:07; Start 07/20/17 at 21:00 Magnesium Hydroxide (Milk Of Magnesia Liq) 30 ml Q12H PRN PO MILD - MODERATE CONSTIPATION; Start 07/20/17 at 18:30 Sennosides (Senokot) 17.2 mg Q12H PRN PO MODERATE - SEVERE CONSTIPATION; Start 07/20/17 at 18:30 Bisacodyl (Dulcolax Supp) 10 mg DAILY PRN RECTAL SEVERE CONSITIPATION; Start 07/20/17 at 18:30 Lactulose (Lactulose Liq) 30 ml DAILY PRN PO SEVERE CONSITIPATION; Start at 18:30 Alprazolam (Xanax) 0.25 mg TID PRN PO ANXIETY; Start 07/20/17 at 18:45 Apixaban (Eliquis) 5 mg BID PO Last administered on 07/20/17 21:39; Start 07/20/17 at 21:00 Aspirin (Aspirin Chew) 81 mg DAILY PO Last administered on 07/21/17 09:05; Start 07/21/17 at 09:00 Furosemide (Lasix) 40 mg DAILY PO Last administered on 07/21/17 09:04; Start 07/21/17 at 09:00 Latanoprost (Xalatan 0.005% Opt Soln) 1 drop HS EACH EYE Last administered on 07/20/17 21:42; Start 07/20/17 at 21:00 Levetriacetam (Keppra) 250 mg BID PO Last administered on 07/21/17 09:04; Start 07/20/17 at 21:00 Levothyroxine Sodium (Synthroid) 50 mcg DAILY@0600 PO Last administered on 07/21 04:37; Start 07/21/17 at 06:00 Lisinopril (Prinivil) 40 mg DAILY PO Last administered on 07/21/17 09:04; Start 07/21/17 at 09:00 Meclizine HCl (Antivert) 25 mg Q8H PRN PO DIZZINES/VERTIGO ; Start 07/20/17 at 18:45 Metoprolol Tartrate (Lopressor) 100 mg BID PO Last administered on 07/21/17 09 :05; Start 07/20/17 at 21:00 Montelukast Sodium (Singulair) 10 mg HS PO Last administered on 07/20/17 21:39 ; Start 07/20/17 at 21:00 Penicillin V Potassium (Veetids) 250 mg BID PO Last administered on 07/21/17 09:05; Start 07/20/17 at 21:00 Potassium Chloride (KCl) 10 meq DAILY PO Last administered on 07/21/17 09:07; Start 07/21/17 at 09:00 Salmeterol Xinafoate (Serevent Diskus Inh) 50 mcg BID INH Last administered on 07/21/17 09:02; Start 07/20/17 at 21:00 Tiotropium [place] (Spiriva Inh) 18 mcg DAILY INH ; Start 07/21/17 at 09:00 Vitamin B Complex/ Vitamin C (Allbee C) 1 tab DAILY PO Last administered on 09:05; Start 07/21/17 at 09:00 Bethanechol Chloride (Urecholine) 50 mg QID PO Last administered on 07/21/17 09:05; Start 07/20/17 at 21:00 Non-Formulary Medication 1 tab DAILY PO ; Start 07/21/17 at 09:00; Status UNV Calcium/Vitamin D (Oscal-D 250-125) 500 mg DAILY PO Last administered on 09:04; Start 07/21/17 at 09:00 Non-Formulary Medication 1 tab DAILY PO ; Start 07/21/17 at 09:00; Status UNV Non-Formulary Medication 1 cap DAILY PO ; Start 07/21/17 at 09:00; Status UNV Atorvastatin Calcium (Lipitor) 40 mg HS PO Last administered on 07/20/17 21:37 ; Start 07/20/17 at 21:00 Vit C/Vit E/Zinc/ Copper/Lutein (Ocuvite) 1 tab DAILY PO Last administered on 07/21/17 09:03; Start 07/21/17 at 09:00 Non-Formulary Medication 1 tab DAILY PO ; Start 07/21/17 at 09:00; Status UNV Pantoprazole Sodium (Protonix) 40 mg DAILY@0600 PO Last administered on 04:37; Start 07/21/17 at 06:00 Urinary Catheter: No Vascular Central Line Catheter: No A/P Problem List: (1) CHF (congestive heart failure) ICD Code: I50.9 - Heart failure, unspecified Status: Chronic (2) Atrial fibrillation with RVR ICD Code: I48.91 - Unspecified atrial fibrillation Status: Acute Assessment and Plan Mr. Beck is 87 yo, with history inclusive of Atrial fibrillation, CHF , COPD, CVA, DM II, Renal artery occlusion (requiring stenting). Mr. Beck was in his usual state of health until 07/20/17 when he was sent to [facility] from his detention for reported shortness of breath. Atrial fibrillation with RVR CHF Hypertension -Admit for observation. -Cardizem 30 mg by mouth every 6 hours -Magnesium lab ordered for 07/20/17 -CMP in the a.m. -Thyroid panel in the a.m. -Check magnesium and phosphorus labs ordered for the morning -Check CPK in the morning -2-D echo -Serial troponins -Place on cardiac telemetry -Follow-up EKG in the morning -Lasix 40 mg by mouth daily -Lisinopril 40 mg by mouth daily -Metoprolol tartrate 100 mg by mouth twice a day CONSULT CARDIO COPD -Montelukast 10 mg by mouth at bedtime -Spiriva 18 microgram inhaled daily -Serevent 50 micrograms twice a day inhaled Seizures -Keppra 250 mg by mouth twice a day Hypothyroidism -RESUME HOME MEDS Diet -Healthy heart GI prophylaxis -Protonix 40 mg daily DVT prophylaxis -Apixaban 5 mg twice a day by mouth PT AND OT TO EVAL Discharge Planning HOPEFULLY BACK TO SNF TODAY IF CLEARED BY CARDIOLOGY FOLLOW UP WITH CARDIO IN 1 TO 2 WEEKS Problem Qualifiers (1) CHF (congestive heart failure): Qualified Codes: I50.9 - Heart failure, unspecified Santiago Anand DO Jul 21, 2017 11:18
[2017-07-21] MEDS ORDERED: DILT31TA PO (11:23)
[2017-07-21] MEDS ORDERED: ALPR0.25 PO (11:23)
--- NOTE | 2017-07-21 11:27 | HHI.DS ---
Discharge Summary Admission Date Jul 20, 2017 at 17:55 Discharge Date: Jul 21, 2017 Admitting Diagnosis afib with RVR, exac of CHF (1) CHF (congestive heart failure) ICD Code: I50.9 - Heart failure, unspecified Diagnosis: Secondary Status: Chronic (2) Atrial fibrillation with RVR ICD Code: I48.91 - Unspecified atrial fibrillation Diagnosis: Principal Status: Acute Procedures NONE Brief History - From Admission Mr. Beck is 87 yo, with history inclusive of Atrial fibrillation, CHF , COPD, CVA, DM II, Renal artery occlusion (requiring stenting). Mr. Beck was in his usual state of health until 07/20/17 when he was sent to [facility] [place] from his retirement for reported shortness of breath. Mr. Beck stated he was unsure why he sent to the hospital. At time of interview he denied cough, shortness of breath, chest/abdominal pain, fever, and malaise. He was asked about his allergies and he said "I have a few" and could not identify them. He was specifically asked about Cardizem and said "I don;t think so." At time of interview, Mr. Beck said he was urinating "just fine" having reported filled "two of those things (urinals) since I got here and I'm working on the third one right now". Per ED physician, Mr. Beck was noted to have atrial fibrillation with RVR as well as mild CHF exacerbation without significant shortness of breath and was not requiring supplemental oxygen as pt was 95-97% oxygenation on room air. Pt had received Lasix 40 mg IV as well as Lopressor 1.25 mg IV x2 and Lopressor 2.5 mg IV . CBC/BMP: 07/21/17 0726 07/21/17 0039 Significant Findings Laboratory Tests Test 07/20/17 11:43 07/20/17 19:15 07/21/17 00:39 07/21/17 07:26 Red Blood Count 4.19 MIL/MM3 (4.50-5.90) 4.20 MIL/MM3 (4.50-5.90) Neutrophils (%) (Auto) 74.0 % (16.0-70.0) 74.6 % (16.0-70.0) Monocytes (%) (Auto) 9.1 % (0.0-8.0) 9.4 % (0.0-8.0) Creatinine 0.56 MG/DL (0.60-1.30) Calcium Level 7.6 MG/DL (8.5-10.1) 8.2 MG/DL (8.5-10.1) Digoxin Level LESS THAN 0.1 NG/ML Total Protein 6.0 GM/DL (6.4-8.2) Albumin 3.0 GM/DL (3.4-5.0) Alkaline Phosphatase 159 U/L (45-117) Hemoglobin A1c 6.3 % (4.3-6.0) Monocytes # (Auto) 1.0 TH/MM3 (0-0.9) Imaging Last Impressions Chest X-Ray 07/20/17 1134 Signed Impressions: Service Date/Time: Thursday, July 20, 2017 11:38 - CONCLUSION: 1. Probable CHF. Antonio Gambino MD PE at Discharge GENERAL: This is a well-nourished, well-developed patient, in no apparent distress. SKIN: No rashes or ecchymoses. Nevus noted in left groin. Cool and dry. HEAD: Atraumatic. Normocephalic. No temporal or scalp tenderness. EYES: Pupils equal round and reactive. Extraocular motions intact. No scleral icterus. No injection or drainage. ENT: Nose without bleeding or purulent drainage. Airway patent.TONGUE MIDLINE NECK: Trachea midline. No lymphadenopathy. Supple and nontender. CARDIOVASCULAR: IRRegular rate with irregularly irregular rhythm without murmurs , gallops, or rubs. S1, S2 NO S3 OR S4 RESPIRATORY: Clear to auscultation. Breath sounds equal bilaterally. No wheezes , rales, or rhonchi. GASTROINTESTINAL: Abdomen soft, non-tender, nondistended. No hepato- splenomegaly or guarding. MUSCULOSKELETAL: Extremities without clubbing, cyanosis, SOME LE EDEMA BL NEUROLOGICAL: Awake and alert. Cranial nerves II through XII intact. Motor and sensory grossly within normal limits. Five out of 5 muscle strength in all muscle groups. Speech clear and fluent. Patient hard of hearing. INSIGHT AND JUDGEMENT ARE GOOD, MOOD AND BEHAVIOR IS APPROPRIATE Hospital Course Mr. Beck is 87 yo, with history inclusive of Atrial fibrillation, CHF , COPD, CVA, DM II, Renal artery occlusion (requiring stenting). Mr. Beck was in his usual state of health until 07/20/17 when he was sent to [facility] [place] from his retirement for reported shortness of breath. Mr. Beck stated he was unsure why he sent to the hospital. At time of interview he denied cough, shortness of breath, chest/abdominal pain, fever, and malaise. He was asked about his allergies and he said "I have a few" and could not identify them. He was specifically asked about Cardizem and said "I don;t think so." At time of interview, Mr. Beck said he was urinating "just fine" having reported filled "two of those things (urinals) since I got here and I'm working on the third one right now". Per ED physician, Mr. Beck was noted to have atrial fibrillation with RVR as well as mild CHF exacerbation without significant shortness of breath and was not requiring supplemental oxygen as pt was 95-97% oxygenation on room air. Pt had received Lasix 40 mg IV as well as Lopressor 1.25 mg IV x2 and Lopressor 2.5 mg IV . 10-9 WAS STARTED ON CARDIZEM 30MG PO Q6H WITH GOOD CONTROL OF HEART RATE DW RN AND PT AND FAMILY DCED TO HOME NO TRUE ALLERGY TO CARDIZEM 3008 FILLED OUT CAN HOPEFULLY GO BACK TO HIS SNF LATER TODAY CARDIOLOGY OUTPT FOLLOW UP Pt Condition on Discharge: Good Discharge Disposition: Discharge to SNF Discharge Time: > 30 minutes Discharge Instructions DIET: Follow Instructions for: Heart Healthy Diet Fluid Restrictions: 1.5 LITERS NIDHI Activities you can perform: Regular-No Restrictions, Weight Bearing as Lilliana Follow up Referrals: Cardiology - 2 Days with Geo Urena MD PCP Follow-up - 2 Days with Gallito Valdez MD New Medications: Alprazolam (Alprazolam) 0.25 Mg Tab 0.25 MG PO Q8H PRN for ANXIETY, #90 TAB 0 Refills Diltiazem (Cardizem) 30 Mg Tab 30 MG PO Q6HR for Regulate Heart Beat, #120 TAB Continued Medications: Apixaban (Eliquis) 5 Mg Tab 5 MG PO BID, #60 TAB Aspirin (Aspir-81) 81 Mg Tab 81 MG PO DAILY, TAB B-Complex Vitamins (Vitamin B Complex) Tab 1 TAB PO DAILY Bethanechol Chloride (Bethanechol Chloride) 50 Mg Tab 50 MG PO QID, TAB Biotin (Biotin) Unknown Strength Tab 1 TAB PO DAILY, TAB Calcium Carbonate-Vitamin D (Calcium 500 + D) +D Tab 1 TAB PO DAILY Chromium Picolinate (Chromium Picolinate) Unknown Strength Tab 1 TAB PO DAILY, TAB Coenzyme Q10 (Ubidecarenone) (Co Q 10) Unknown Strength Cap 1 CAP PO DAILY Collagen (Collagen) Unknown Strength Cap 1 CAP PO DAILY, CAP Crestor (Crestor) 20 Mg Tab 20 MG PO HS Furosemide (Lasix) 40 Mg Tab 40 MG PO DAILY Latanoprost (Xalatan) 0.005 % Soln 1 DROP EACH EYE HS, 0 Refills Levetiracetam (Keppra) 250 Mg Tab 250 MG PO BID for Seizure Control for 30 Days, TAB 0 Refills Levothyroxine Sodium (Levothyroxine 50 mcg) 50 Mcg Tab 50 MCG PO DAILY, TAB Lisinopril 20 mg (Prinivil 20 mg) 20 Mg Tab 40 MG PO DAILY for Blood Pressure Management for 30 Days, TAB Lutein-Zeaxanthin (Lutein W/Zeaxanthin) 1 Tab Tab 1 TAB PO DAILY Magnesium Gluconate (Magnesium) Unknown Strength Tab 1 TAB PO DAILY Meclizine HCl (Antivert) 25 Mg Tab 25 MG PO Q8H PRN for DIZZINES/VERTIGO for 14 Days, TAB 0 Refills Metoprolol Tartrate (Metoprolol Tartrate) 100 Mg Tab 100 MG PO BID for Blood Pressure Management for 30 Days, TAB 0 Refills Montelukast Sodium (Montelukast Sodium) 10 Mg Tab 10 MG PO HS, TAB Nitroglycerin (Nitrolingual 0.4 Mg Pumpspray) 60 [place]/4.9 Gm [place] 1 SPRAY SL Q5M, SPRAY MAXIUMUM OF 3 DOSES IN 15 MINUTES.CALL MD IF CHEST PAIN NOT RELIEVED. Pantoprazole Sodium (Pantoprazole Sodium) 40 Mg Tab 40 MG PO DAILY Penicillin V Potassium (Pen Vk) 250 Mg Tab 250 MG PO BID Potassium Chloride (Klor-Con 10) 10 Meq Tab 10 MEQ PO DAILY Salmeterol Xinafoate (Serevent Diskus) 50 Mcg Inhp 1 PUFF INH BID, 0 Refills Tiotropium [place] Monohydrate (Spiriva Handihaler) 18 Mcg Cap 1 DOSE INH DAILY, 0 Refills Discontinued Medications: Alprazolam (Alprazolam) 0.25 Mg Tab 0.25 MG PO TID PRN for ANXIETY, TAB Digoxin 0.25 mg (Digoxin 0.25 mg) 0.25 Mg Tab 0.25 MG PO DAILY Santiago Anand DO Jul 21, 2017 11:27
[2017-07-21 12:00] VITALS: BP 127/60; PULSE 65; RESP 20; TEMP 97.2; O2SAT 97
--- NOTE | 2017-07-21 12:34 | EKG ---
Date Performed: 07/20/2017 Time Performed: 19:34:11 PTAGE: 87 years EKG: ATRIAL FIBRILLATION WITH RAPID VENTRICULAR RESPONSE NONSPECIFIC ST & T-WAVE ABNORMALITY ABN ORMAL RHYTHM ECG Compared to prior tracing no significant change PREVIOUS TRACING : 07/20/2017 11.34 DOCTOR: Abhi Herron Interpretating Date/Time 07/21/2017 12:29:06
== END 2017-07-21 15:17 ==
LOC: NEPE 11:17 → UNDOADMOB 17:55 → NEDA 17:55 → INTOOBSV 17:55 → NEDA 17:55 → N04B 20:00 → NEDA 20:00 → UNDODISOB 07-21 15:17
PROVIDERS: ADMIT Hospitalist; ATTEND Hospitalist
DX: I50.9 Heart failure, unspecified (principal); I48.91 Unspecified atrial fibrillation; I11.0 Hypertensive heart disease with heart failure; I70.1 Atherosclerosis of renal artery; J44.9 Chronic obstructive pulmonary disease, unspecified; G47.30 Sleep apnea, unspecified; K21.9 Gastro-esophageal reflux disease without esophagitis; E11.9 Type 2 diabetes mellitus without complications; E78.00 Pure hypercholesterolemia, unspecified; E03.9 Hypothyroidism, unspecified; R56.9 Unspecified convulsions; Z79.01 Long term (current) use of anticoagulants; Z79.899 Other long term (current) drug therapy; Z85.46 Personal history of malignant neoplasm of prostate; Z85.828 Personal history of other malignant neoplasm of skin; Z86.73 Personal history of transient ischemic attack (TIA), and cerebral infarction without residual deficits; Z95.5 Presence of coronary angioplasty implant and graft
CPT/HCPCS: 71010; 80048; 80053; 80162; 82550; 83036; 83735; 84100; 84439; 84443; 84484; 85025; 93005; 96374; 96375; 96376; 97162; 97166; 99285; G0378; G8987; G8988; G8989; J1940

== ENCOUNTER 2017-08-26 18:56 | Inpatient (IN) | payer MEDICARE, BC, OTHER ==
[~2017-08-26] VITALS: Ht 154.9 cm; Wt 65.1 kg
[~2017-08-26 18:56] MED LIST changes: -DIGO0.25 PO; +DILT31TA PO
[2017-08-26 19:08] VITALS: BP 149/74; PULSE 64; RESP 18; TEMP 97.3; O2SAT 100
[2017-08-26 19:30] VITALS: BP 152/72; PULSE 66; RESP 18; O2SAT 98
[2017-08-26] MEDS ORDERED: SODIUM CHLOR 0.9% 250 ML INJ 250 ML IV ONE (19:45)
--- NOTE | 2017-08-26 20:00 | PD ---
HPI Chief Complaint: Complaint Time Seen by Provider: 19:25 Travel History International Travel<30 days: No Contact w/Intl Traveler<30days: No Traveled to known affect area: No History of Present Illness HPI pt is a 87 yr old male with recent admission for CHF and afib RVR in Jul 2017 then he was in [facility]ib started on Digoxin and cardizem , but reports provider at the [facility] stopped those meds. Also the main complinat for todays visit is that the patient has had urinary incontinence for over 3 weeks and is on Augmentin for a UTI and still has the urinary incontinence. Pt has rate controlled afib tonight and appears non toxic and alert and oriented times 3 , he differs all question to his , SHe is well informed and has all his records with her. CC urinary incintinence and Hyponatremia. the Na was 123 5 days ago and now water restriction has elevated the Na to 127 labs from today. PFSH Past Medical History Hx Anticoagulant Therapy: Yes (Eliquis and aspirin) Arthritis: Yes (hands) Atrial Fibrillation: Yes Autoimmune Disease: No Anxiety: No Depression: Yes Heart Rhythm Problems: Yes (AFIB) Cancer: Yes (PROSTATE 1989 SKIN 1990) Cardiac Catheterization: Yes Cardiovascular Problems: Yes (HTN, pacemaker, 6 stents, CAD, CHF, Afib) High Cholesterol: Yes Chemotherapy: Yes Congestive Heart Failure: Yes COPD: Yes Cerebrovascular Accident: Yes (1 stroke, 3 TIAS) Coronary Artery Disease: Yes (1999) Diabetes: Yes Patient Takes Glucophage: No Diminished Hearing: Yes (BILATERAL) Endocrine: No Gastrointestinal Disorders: Yes (GASTROPORESIS) GERD: Yes Glaucoma: Yes Genitourinary: Yes (RENAL ARTERY BLOCKED 95 % TO HAVE STENT IMPLANT) Hypertension: Yes Immune Disorder: No Implanted Vascular Access Dvce: Yes Musculoskeletal: Yes (OSTEOPOROSIS) Neurologic: Yes Psychiatric: Yes Reproductive: Yes (VASECTOMY 1962) Respiratory: Yes (COPD, Tom's Esophagus, YU/central sleep apnea) Integumentary: Yes (SKIN CA 1990) Immunizations Current: No Migraines: No Radiation Therapy: Yes (PROSTATE CA 1989) Seizures: Yes (On Keppra) Sleep Apnea: Yes (USES BIPAP) Thyroid Disease: Yes Past Surgical History Body Medical Devices: rods, pins in r leg Cardiac Surgery: Yes Cholecystectomy: Yes Coronary Artery Bypass Graft: Yes Coronary Stent: Yes (X5) Ear Surgery: Yes (GLAUCOMA) Eye Surgery: Yes (LASER BOTH EYES) Genitourinary Surgery: Yes (RIGHT RENAL ARTERY STENT X2, benign bladder tumor) Neurologic Surgery: No Oral Surgery: Yes (MAX RIDGE AUGMENTATION) Pacemaker: Yes ([employer] MODEL NUMBER [id number]) Tonsillectomy: Yes Other Surgery: Yes (TURP, RT HIP FX REPAIR) Social History Alcohol Use: No Tobacco Use: No Substance Use: No Allergies-Medications (Allergen,Severity, Reaction): Coded Allergies: Calcium Channel Blocking Agent Dilt (Verified Allergy, Severe, Edema, ) diatrizoate meglumine (Verified Allergy, Severe, 08/26/17) fesoterodine (Verified Allergy, Severe, Constipation, 08/26/17) gadobenic acid (Verified Allergy, Severe, 08/26/17) gadodiamide (Verified Allergy, Severe, 08/26/17) gadoteridol (Verified Allergy, Severe, 08/26/17) iodixanol (Verified Allergy, Severe, 08/26/17) iohexol (Verified Allergy, Severe, 08/26/17) isosorbide (Verified Allergy, Severe, Headache, 08/26/17) mirabegron (Verified Allergy, Severe, Urinary Freq (Inc/Dec), 08/26/17) oxybutynin (Verified Allergy, Severe, Constipation, 08/26/17) and unable to urinate diltiazem (Verified Allergy, Intermediate, Edema, 08/26/17) adhesive tape (Verified Allergy, Unknown, Rash, 08/26/17) Reported Meds & Prescriptions Reported Meds & Active Scripts Active Alprazolam 0.25 Mg Tab 0.25 Mg PO Q8H PRN Cardizem (Diltiazem HCl) 30 Mg Tab 30 Mg PO Q6HR Reported Coq-10 Tr (Coenzyme Q10 (Ubidecarenone)) 100 Mg Cap 100 Mg PO DAILY Lutein 6 Mg Cap 6 Mg PO DAILY Aspirin 81 Mg Chew 81 Mg CHEW DAILY Digestive Advantage Probiotic (Lactobacillus Rhamnosus (GG)) 1 Chew 1 Tab CHEW DAILY Magnesium Oxide 500 Mg Tab 500 Mg PO DAILY Canasa Supp (Mesalamine) 1,000 Mg Supp 1,000 Mg RECTAL HS Combivent Respimat Inh (Ipratropium-Albuterol Inh) 20-100 Correction/Act Aero 1 Puff INH QID Montelukast (Montelukast Sodium) 10 Mg Tab 10 Mg PO HS Latanoprost Opth Drops (Latanoprost) 0.005% Drops 1 Drop EACH EYE HS Refrigerate until opened. Metoprolol Tartrate 100 Mg Tab 100 Mg PO BID Synthroid (Levothyroxine Sodium) 88 Mcg Tab 88 Mcg PO DAILY Clonidine (Clonidine HCl) 0.1 Mg Tab 0.1 Mg PO DAILY Eliquis (Apixaban) 5 Mg Tab 5 Mg PO BID Potassium Chloride ER (Potassium Chloride) 10 Meq Cap 10 Meq PO BID Vitamin D3 (Cholecalciferol) 1,000 Unit Cap 2,000 Units PO DAILY Aldactone (Spironolactone) 25 Mg Tab 12.5 Mg PO DAILY Livalo (Pitavastatin) 1 Mg Tab 1 Mg PO DAILY Systane Opth Drops (Polyethylene Glycol-Propylene Glycol Opth Drp) 0.4-0.3% Soln 1-2 Drop EACH EYE Q6HR PRN [place]-3 Fish Oil/Vitamin (Fish Oil-Cholecalciferol) 1,000-1,000 Mg Cap 1 Cap PO DAILY Khloe-C 500 mg Tablet (Ascorbate Calcium/Bioflavonoid) 500 Mg-200 Mg Tablet 500 Mg PO DAILY Meclizine (Meclizine HCl) 12.5 Mg Tab 12.5 Mg PO BID PRN Furosemide 40 Mg Tab 40 Mg PO DAILY Lisinopril 10 Mg Tab 10 Mg PO DAILY Preservision Areds (Multiple Vitamins W/ Minerals) 1 Tab 1 Tab PO DAILY Review of Systems Except as stated in HPI: all other systems reviewed are Neg General / Constitutional: No: Fever, Chills Genitourinary: Positive: Incontinence Musculoskeletal: No: Myalgias Neurologic: Positive: Dizziness Physical Exam Narrative GENERAL: awake alert non toxic non septic appearance SKIN: Warm and dry. HEAD: Atraumatic. Normocephalic. EYES: Pupils equal and round. No scleral icterus. No injection or drainage. ENT: No nasal bleeding or discharge. Mucous membranes pink and moist. NECK: Trachea midline. No JVD. CARDIOVASCULAR: . irregular rate controlled PPM RESPIRATORY: No accessory muscle use. Clear to auscultation. Breath sounds equal bilaterally. GASTROINTESTINAL: Abdomen soft, non-tender, nondistended. Hepatic and splenic margins not palpable. MUSCULOSKELETAL: Extremities without clubbing, cyanosis, or edema. No obvious deformities. NEUROLOGICAL: Awake and alert. No obvious cranial nerve deficits. Motor grossly within normal limits. Five out of 5 muscle strength in the arms and legs. Normal speech. PSYCHIATRIC: Appropriate mood and affect; insight and judgment normal. Data Data Last Documented VS Vital Signs Date Time Temp Pulse Resp B/P (MAP) Pulse Ox O2 Delivery O2 Flow Rate FiO2 08/26/17 21:30 68 18 151/75 (100) 99 Room Air 08/26/17 19:08 97.3 Orders Orders Urinalysis - C+S If Indicated (08/26/17 19:18) Complete Blood Count With Diff (08/26/17 19:44) Comprehensive Metabolic Panel (08/26/17 19:44) Sodium Chlor 0.9% 250 Ml Inj (Ns 250 Ml (08/26/17 19:45) Urine Culture (08/26/17 19:44) Electrocardiogram (08/26/17 ) Chest, Single Ap (08/26/17 ) Labs Laboratory Tests Test 08/26/17 19:45 08/26/17 19:55 Urine Color STRAW Urine Turbidity CLEAR Urine pH 6.0 Urine Specific [place] 1.010 Urine Protein TRACE mg/dL Urine Glucose (UA) NEG mg/dL Urine Ketones NEG mg/dL Urine Occult Blood SMALL Urine Nitrite NEG Urine Bilirubin NEG Urine Leukocyte Esterase TRACE Urine RBC 0-3 /hpf Urine WBC 0-2 /hpf Urine Squamous Epithelial Cells 0-5 /hpf Microscopic Urinalysis Comment CULT NOT INDICATED White Blood Count 9.0 TH/MM3 Red Blood Count 4.56 MIL/MM3 Hemoglobin 13.8 GM/DL Hematocrit 42.1 % Mean Corpuscular Volume 92.2 FL Mean Corpuscular Hemoglobin 30.3 PG Mean Corpuscular Hemoglobin Concent 32.9 % Red Cell Distribution Width 13.3 % Platelet Count 181 TH/MM3 Mean Platelet Volume 8.7 FL Neutrophils (%) (Auto) 69.8 % Lymphocytes (%) (Auto) 16.9 % Monocytes (%) (Auto) 9.0 % Eosinophils (%) (Auto) 3.5 % Basophils (%) (Auto) 0.8 % Neutrophils # (Auto) 6.3 TH/MM3 Lymphocytes # (Auto) 1.5 TH/MM3 Monocytes # (Auto) 0.8 TH/MM3 Eosinophils # (Auto) 0.3 TH/MM3 Basophils # (Auto) 0.1 TH/MM3 CBC Comment DIFF FINAL Differential Comment Blood Urea Nitrogen 17 MG/DL Creatinine 0.66 MG/DL Random Glucose 93 MG/DL Total Protein 7.4 GM/DL Albumin 3.8 GM/DL Calcium Level 8.6 MG/DL Alkaline Phosphatase 146 U/L Aspartate Amino Transf (AST/SGOT) 25 U/L Alanine Aminotransferase (ALT/SGPT) 27 U/L Total Bilirubin 0.5 MG/DL Sodium Level 122 MEQ/L Potassium Level 5.2 MEQ/L Chloride Level 89 MEQ/L Carbon Dioxide Level 23.4 MEQ/L Anion Gap 10 MEQ/L Estimat Glomerular Filtration Rate 114 ML/MIN MDM Medical Decision Making Medical Screen Exam Complete: Yes Emergency Medical Condition: Yes Differential Diagnosis neuro genic bladder incontinence vs overflow incontinence , vs hyponatremia causing dizziness, vs Diabetes insipidus urinary issue, vs UTI Narrative Course spoke to dr Jordan of incontinence and he reports that consult for AM , pt has hyponatremia again 122 and will admit, 250 NS bolus in ED and admit for fine tuning of Sodium and urinary issues as inpt Diagnosis Primary Impression: Urinary incontinence Qualified Codes: R32 - Unspecified urinary incontinence Additional Impression: Hyponatremia Admitting Information Admitting Physician Requests: Admit Earl Kirby MD Aug 26, 2017 20:00
[2017-08-26 20:32] LABS: BLOOD, URINE SMALL (NEG); GLUCOSE,URINE NEG (NEG); KETONE, URINE NEG (NEG); NITRITE,URINE NEG (NEG)
[2017-08-26 20:36] LABS: AUTOMATED NEUTROPHIL # 6.3 TH/MM3 (1.8-7.7); BASOPHIL # 0.1 TH/MM3 (0-0.2); BASOPHIL % 0.8 % (0.0-2.0); EOSINOPHIL # 0.3 TH/MM3 (0-0.4); EOSINOPHIL % 3.5 % (0.0-4.0); HEMATOCRIT 42.1 % (39.0-51.0); HEMO FLAGS DIFF FINAL; LYMPH % 16.9 % (9.0-44.0); LYMPHOCYTE # 1.5 TH/MM3 (1.0-4.8); MEAN CELL VOLUME 92.2 FL (80.0-100.0); MEAN CORPUSCULAR HEMOGLOBIN 30.3 PG (27.0-34.0); MEAN CORPUSCULAR HGB CONC 32.9 % (32.0-36.0); NEUT % 69.8 % (16.0-70.0); PLATELET COUNT 181 TH/MM3 (150-450); RED BLOOD COUNT 4.56 MIL/MM3 (4.50-5.90); RED CELL DISTRIBUTION WIDTH 13.3 % (11.6-17.2)
[2017-08-26 20:36] LABS: URINE COLOR STRAW (YELLW/STRAW)
[2017-08-26 20:37] LABS: COMMENT (UR) CULT NOT INDICATED; CULTURE IF INDICATED CULT NOT INDICATED; RBC, URINE 0-3 /hpf (0-3); SQUAMOUS EPITHELIAL CELL URINE 0-5 /hpf (0-5); WBC, URINE 0-2 /hpf (0-5)
[2017-08-26] MEDS ORDERED: IPRAAER INH (20:38)
[2017-08-26] MEDS ORDERED: MECL12.574 PO (20:38)
[2017-08-26] MEDS ORDERED: CANA10002 RECTAL (20:38)
[2017-08-26] MEDS ORDERED: FURO40TA PO (20:38)
[2017-08-26] MEDS ORDERED: SYNT88TA PO (20:38)
[2017-08-26] MEDS ORDERED: CHOL10008 PO (20:38)
[2017-08-26] MEDS ORDERED: OMEGCAP PO (20:38)
[2017-08-26] MEDS ORDERED: LIVA1TAB PO (20:38)
[2017-08-26] MEDS ORDERED: ASPI-516 CHEW (20:38)
[2017-08-26] MEDS ORDERED: LUTE6CAP2 PO (20:38)
[2017-08-26] MEDS ORDERED: MONT10TA4 PO (20:38)
[2017-08-26] MEDS ORDERED: ESTETAB3 PO (20:38)
[2017-08-26] MEDS ORDERED: POTA10CA PO (20:38)
[2017-08-26] MEDS ORDERED: MAGN500T2 PO (20:38)
[2017-08-26] MEDS ORDERED: APIX5TAB PO (20:38)
[2017-08-26] MEDS ORDERED: COQ-100C5 PO (20:38)
[2017-08-26] MEDS ORDERED: SYSTSOL EACH EYE (20:38)
[2017-08-26] MEDS ORDERED: OCUVTAB4 PO (20:38)
[2017-08-26] MEDS ORDERED: PROB1CHW4 CHEW (20:38)
[2017-08-26] MEDS ORDERED: CLON0.1T PO (20:38)
[2017-08-26] MEDS ORDERED: LISI10TA3 PO (20:38)
[2017-08-26] MEDS ORDERED: METO100T PO (20:38)
[2017-08-26] MEDS ORDERED: SPIR25 PO (20:38)
[2017-08-26] MEDS ORDERED: LATA0.002 EACH EYE (20:38)
[2017-08-26 21:11] LABS: ALKALINE PHOSPHATASE 146 U/L (45-117); ALT (GPT) 27 U/L (12-78); ANION GAP 10 MEQ/L (5-15); AST (GOT) 25 U/L (15-37); BICARBONATE 23.4 MEQ/L (21.0-32.0); BLOOD UREA NITROGEN 17 MG/DL (7-18); CHLORIDE 89 MEQ/L (98-107); GLOMERULAR FILTRATION RATE 114 ML/MIN (>89); POTASSIUM 5.2 MEQ/L (3.5-5.1); TOTAL BILIRUBIN ADULT 0.5 MG/DL (0.2-1.0)
[2017-08-26 21:15] LABS: SODIUM (NA) 122 MEQ/L (136-145)
[2017-08-26 21:30] VITALS: BP 151/75; PULSE 68; RESP 18; O2SAT 99
--- NOTE | 2017-08-26 21:46 | RADRPT ---
EXAM DATE/TIME: 08/26/2017 20:18 [facility] COMPARISON: CHEST SINGLE AP, July 20, 2017, 11:38. INDICATIONS : Short of breath for several days. MEDICAL HISTORY : Hypercholesterolemia. Gastroesophageal reflux disease. Chronic obstructive pulmonary disease. [place] a. CVA. Seizures. Syncope. CHF. CAD. Rheumatic fever. A-Fib. Hypertension. Sleep apnea. Osteoporosis. Arthritis. Renal artery blockage. Prostate cancer. Skin cancer. Benign bladder tumor. Measles. Gastr oporesis. SURGICAL HISTORY : Tonsillectomy. Cholecystectomy. Coronary artery stent. Eye surgery. Oral surgery. CABG. Cardiac cath. Pacemaker. Renal artery stent. Radiation therapy. Chemotherapy. Vasectomy. Blood transfusion. Right hip surgery. ENCOUNTER: Initial ACUITY: 4 - 6 days PAIN SCORE: 0/10 LOCATION: Bilateral chest FINDINGS: There is a pacemaker placed from the left subclavian approach. The heart size is normal. The lungs ar e clear. The aorta is tortuous and calcified. The bones are osteopenic. CONCLUSION: No acute disease. Koko Julian MD on August 26, 2017 at 21:43 Board Certified Radiologist. This report was verified electronically.
[2017-08-26] MEDS ORDERED: SODIUM CHLOR 0.9% 1000 ML INJ 1,000 ML IV SCH (21:59)
[2017-08-26] MEDS ORDERED: ONDANSETRON HCL 4 MG/2 ML VIAL IVP PRN (22:00)
[2017-08-26] MEDS ORDERED: BISACODYL 10 MG SUPP RECTAL PRN (22:00)
[2017-08-26] MEDS ORDERED: LACTULOSE SYRUP 20 GM/30 ML CUP PO PRN (22:00)
[2017-08-26] MEDS ORDERED: SENNOSIDES 8.6 MG TAB PO PRN (22:00)
[2017-08-26] MEDS ORDERED: MAGNESIUM HYDROXIDE SUSP 30 ML CUP PO PRN (22:00)
[2017-08-26] MEDS ORDERED: NALOXONE HCL 0.4 MG/ML AMP IV PUSH PRN (22:00)
[2017-08-26] MEDS ORDERED: ACETAMINOPHEN 325 MG TAB PO PRN (22:00)
[2017-08-26] MEDS ORDERED: SODIUM CHLORIDE 0.9% FLUSH 10 ML FLUSH IV FLUSH PRN (22:00)
[2017-08-26] MEDS ORDERED: ALPRAZolam 0.25 MG TAB PO PRN (22:15)
[2017-08-26] MEDS: HEPARIN SODIUM - SQ 10,000 UNITS/ML VIAL SQ SCH (22:56)
[2017-08-26 23:20] VITALS: BP 150/83
[2017-08-27] VITALS: BP 142/77; PULSE 75; RESP 18; TEMP 96.6; O2SAT 97
[2017-08-27] MEDS: DILTIAZEM HCL 30 MG TAB PO SCH ×4 (00:39→17:50)
[2017-08-27 03:27] LABS: POTASSIUM 4.5 MEQ/L (3.5-5.1)
[2017-08-27 03:31] LABS: BICARBONATE 25.1 MEQ/L (21.0-32.0)
[2017-08-27 04:00] VITALS: BP 119/72; PULSE 61; RESP 20; TEMP 97.9; O2SAT 99
[2017-08-27] MEDS: LEVOTHYROXINE SODIUM 88 MCG TAB PO SCH (05:27)
[2017-08-27 06:52] LABS: AUTOMATED NEUTROPHIL # 5.3 TH/MM3 (1.8-7.7); BASOPHIL # 0.1 TH/MM3 (0-0.2); BASOPHIL % 1.5 % (0.0-2.0); EOSINOPHIL # 0.3 TH/MM3 (0-0.4); HEMATOCRIT 39.4 % (39.0-51.0); HEMO FLAGS DIFF FINAL; LYMPH % 17.2 % (9.0-44.0); LYMPHOCYTE # 1.4 TH/MM3 (1.0-4.8); MEAN CELL VOLUME 92.3 FL (80.0-100.0); MEAN CORPUSCULAR HGB CONC 33.6 % (32.0-36.0); MONO % 9.6 % (0.0-8.0); NEUT % 67.7 % (16.0-70.0); PLATELET COUNT 152 TH/MM3 (150-450); RED BLOOD COUNT 4.27 MIL/MM3 (4.50-5.90); RED CELL DISTRIBUTION WIDTH 13.3 % (11.6-17.2); WHITE BLOOD COUNT 7.9 TH/MM3 (4.0-11.0)
[2017-08-27 07:04] LABS: POTASSIUM 4.5 MEQ/L (3.5-5.1)
[2017-08-27 08:10] VITALS: BP 174/72; PULSE 66; RESP 18; TEMP 98.1; O2SAT 95
[2017-08-27] MEDS: SODIUM CHLORIDE 0.9% FLUSH 10 ML FLUSH IV FLUSH SCH ×2 (09:00→21:56)
[2017-08-27] MEDS: ALBUTEROL SULFATE 90 MCG/ACT HFA 8 GM INHALER INH SCH ×5 (09:00→21:57)
[2017-08-27] MEDS: TIOTROPIUM BROMIDE 18 MCG INH INH SCH ×3 (09:00→17:50)
[2017-08-27] MEDS ORDERED: NON-FORMULARY DRUG (Ipratropium-Albuterol Inh (Combivent Respimat Inh) 1 PUFF) INH SCH (09:00)
[2017-08-27] MEDS: APIXABAN 5 MG TABLET PO SCH ×2 (10:07→21:55)
[2017-08-27] MEDS: PRAVASTATIN SOD 20 MG TAB PO SCH (10:07)
[2017-08-27] MEDS: LISINOPRIL 10 MG TAB PO SCH (10:07)
[2017-08-27] MEDS: METOPROLOL TARTRATE 100 MG TAB PO SCH ×2 (10:07→21:55)
[2017-08-27] MEDS: FUROSEMIDE 40 MG TAB PO SCH (10:07)
[2017-08-27] MEDS: SPIRONOLACTONE 25 MG TAB PO SCH (10:08)
[2017-08-27] MEDS: cloNIDine HCL 0.1 MG TAB PO SCH (10:08)
[2017-08-27] MEDS: ASPIRIN 81 MG CHEW TAB CHEW SCH (10:08)
[2017-08-27] MEDS: MAGNESIUM OXIDE 400 MG TAB PO SCH (10:08)
[2017-08-27] MEDS: DOCUSATE SODIUM 50 MG/SENNA 8.6 MG TAB PO SCH ×2 (10:08→21:56)
[2017-08-27] MEDS: HEPARIN SODIUM - SQ 10,000 UNITS/ML VIAL SQ SCH ×2 (10:11→21:56)
[2017-08-27] MEDS: POTASSIUM CHLORIDE 10 MEQ CAP PO SCH (10:53)
[2017-08-27 12:00] VITALS: BP 150/72; PULSE 80; RESP 18; TEMP 98; O2SAT 95
--- NOTE | 2017-08-27 15:22 | RADRPT ---
EXAM DATE/TIME: 08/27/2017 13:29 [facility] COMPARISON: US KIDNEY/RENAL/BLADDER, September 20, 2014, 9:41. INDICATIONS : Incontinence. MEDICAL HISTORY : Congestive heart failure. Hypercholesterolemia. Carcinoma, prostate. Thyroid disease. Glaucoma. Blind left eye. CVA. Coronary artery disease. Afib. HTN. COPD. Mayen's esophagus. sleep apnea. gastropor esis. osteoporosis. arthritis. diabetes. depression. clotting problems. skin cancer. anticoagulant t herapy, eliquis and aspirin. SURGICAL HISTORY : Tonsillectomy. Pacemaker. Coronary artery stent. Bilateral laser eye surgery. Max ridge augmentation. CABG. Cardiac cath. Cholecystectomy. Vasectomy. Right renal artery stent. Benign bladder tumor remov ed. Radiation therapy. Right hip fracture surgery. Chemotherapy. TURP. Blood transfusions. ENCOUNTER: Initial ACUITY: 1 day PAIN SCORE: 0/10 LOCATION: Bilateral flank MEASUREMENTS: RIGHT KIDNEY: 11.9 x 5.5 x 5.9 cm LEFT KIDNEY: 11.4 x 5.2 x 6.1 cm FINDINGS: RIGHT KIDNEY: Renal cortex is normal in thickness and echotexture. No hydronephrosis, stone, or mass. LEFT KIDNEY: Renal cortex is normal in thickness and echotexture. No hydronephrosis, stone, or mass. BLADDER: Within normal limits given the degree of distension. Prevoid volume is estimated at 435 cc with a po st void volume estimated at 19 cc. CONCLUSION: 1. Both kidneys are sonographically normal. 2. Pre-and post void bladder volumes provided above. Oh Johnson MD on August 27, 2017 at 15:18 Board Certified Radiologist. This report was verified electronically.
--- NOTE | 2017-08-27 15:27 | HHI.HP ---
[facility] Ev[facility], Admission Diagnosis hyponatremia Diagnoses: Travel History International Travel<30 Days: No Contact w/Intl Traveler <30 Da: No Traveled to Known Affected Are: No History of Present Illness Pt is a 87 yr old male w PMHx COPD, atrial fib, CHF, CAD, hyperlipidemia, HTN, hypothyroidism, bladder tumor s/p resection, recent UTI, came in because of diarrhea, hyponatremia and not feeling well. Pt is a poor historian but is able to tell , me that he had a procedure done on his bladder 3-4 days ago by his urologist and since he has been having a "leaky bladder". Pt also states that he was on a medication which cause severe diarrhea. Today he has had 3 loose stools already. states that he has been having diarrhea x 1 week. He then tells me that his knowns more than him and is agreeable for me to call his . I did call his , Mrs Natacha Beck ([phone]) and she tells me that his recent labs on 08/20, his sodium was down to 123, then it went up on 08/25 it was 127. He had a UTI and was on augmentin x 6 days and he developped severe diarrhea, last day of augmentin was 08/25/17. Diarrhea x 1 week off and on since getting diagnosed w UTI and worsened since being started on the augmentin (which was started 08/20/17). On friday, per pt spent all day in the bathroom, was prescribed Questran. He took two doses one dose on friday in the PM and another on friday in the AM, that didn't help w the diarrhea. Since, pt has lost appetite, lost 14 lbs this past month. He sees a [facility] Mgr , Dr. Madden. scheduled for EGD, due to trouble swallowing, and has been scheduled for another esophageal dilatation . Per , pt had a Cystoscopic/urethral dilation 07/07/17, has had lots of problems since procedure. Urologist, is Dr. Shook. Apparently pt also having urinary incontinence, s/p radiation cystitis and proctitis. 60 episodes of hyperbaric oxygen. s/p bladder tumor removal which was benign. He was on nyrbetriq and now off of it and was started on oxybytynin which also caused constipation and not being able to urinate. Pt denies any CP/SOB/N/V at this time, no lightheadedness or dizziness. Review of Systems Except as stated in HPI: all other systems reviewed are Neg Past Family Social History Past Medical History COPD, atrial fib, CHF, CAD, hyperlipidemia, HTN, hypothyroidism, bladder tumor s /p resection, recent UTI Past Surgical History pacemaker s/p 6 stents bladder tumor removal esophageal dilatation cystoscopy and urethral dilatation Allergies: Coded Allergies: Calcium Channel Blocking Agent Dilt (Verified Allergy, Severe, Edema, ) diatrizoate meglumine (Verified Allergy, Severe, 08/26/17) fesoterodine (Verified Allergy, Severe, Constipation, 08/26/17) gadobenic acid (Verified Allergy, Severe, 08/26/17) gadodiamide (Verified Allergy, Severe, 08/26/17) gadoteridol (Verified Allergy, Severe, 08/26/17) iodixanol (Verified Allergy, Severe, 08/26/17) iohexol (Verified Allergy, Severe, 08/26/17) isosorbide (Verified Allergy, Severe, Headache, 08/26/17) mirabegron (Verified Allergy, Severe, Urinary Freq (Inc/Dec), 08/26/17) oxybutynin (Verified Allergy, Severe, Constipation, 08/26/17) and unable to urinate diltiazem (Verified Allergy, Intermediate, Edema, 08/26/17) adhesive tape (Verified Allergy, Unknown, Rash, 08/26/17) Active Ordered Medications Last Impressions Chest X-Ray 08/26/17 0000 Signed Impressions: Service Date/Time: Saturday, August 26, 2017 20:18 - CONCLUSION: No acute disease. Koko Julian MD Family History mother and father had PA Social History quit smoking 40 years ago, used to smoke 2-3ppd for a few years denies any alcohol use or illegal drug use Physical Exam Vital Signs Vital Signs Date Time Temp Pulse Resp B/P (MAP) Pulse Ox O2 Delivery O2 Flow Rate FiO2 08/27/17 08:10 98.1 66 18 174/72 (106) 95 08/27/17 04:00 97.9 61 20 119/72 (88) 99 08/27/17 00:00 96.6 75 18 142/77 (98) 97 08/26/17 23:20 76 18 150/83 (105) 99 08/26/17 21:30 68 18 151/75 (100) 99 Room Air 08/26/17 19:30 66 18 152/72 (98) 98 Room Air 08/26/17 19:30 66 18 08/26/17 19:08 97.3 64 18 149/74 (99) 100 Physical Exam GENERAL: Thin male, laying in bed. SKIN: cool and dry. HEAD: Atraumatic. Normocephalic. EYES: Pupils equal round and reactive. Extraocular motions intact. No scleral icterus. No injection or drainage. ENT: Nose without drainage. Throat without erythema, tonsillar hypertrophy or exudate. Airway patent. NECK: Trachea midline. CARDIOVASCULAR: irregularly irregular without murmurs RESPIRATORY: Clear to auscultation. Breath sounds equal bilaterally. No wheezes GASTROINTESTINAL: Abdomen soft, non-tender, nondistended. No palpable masses. No guarding. MUSCULOSKELETAL: Extremities without edema. No calf tenderness. Negative Homans sign bilaterally. NEUROLOGICAL: Awake and alert. Cranial nerves II through XII intact. Motor and sensory grossly within normal limits. Five out of 5 muscle strength in all muscle groups. Normal speech. Laboratory Laboratory Tests Test 08/26/17 19:45 08/26/17 19:55 08/27/17 03:00 08/27/17 04:22 Urine Color STRAW Urine Turbidity CLEAR Urine pH 6.0 Urine Specific [place] 1.010 Urine Protein TRACE Urine Glucose (UA) NEG Urine Ketones NEG Urine Occult Blood SMALL Urine Nitrite NEG Urine Bilirubin NEG Urine Leukocyte Esterase TRACE Urine RBC 0-3 Urine WBC 0-2 Urine Squamous Epithelial Cells 0-5 Microscopic Urinalysis Comment CULT NOT INDICATED White Blood Count 9.0 7.9 Red Blood Count 4.56 4.27 Hemoglobin 13.8 13.3 Hematocrit 42.1 39.4 Mean Corpuscular Volume 92.2 92.3 Mean Corpuscular Hemoglobin 30.3 31.0 Mean Corpuscular Hemoglobin Concent 32.9 33.6 Red Cell Distribution Width 13.3 13.3 Platelet Count 181 152 Mean Platelet Volume 8.7 9.3 Neutrophils (%) (Auto) 69.8 67.7 Lymphocytes (%) (Auto) 16.9 17.2 Monocytes (%) (Auto) 9.0 9.6 Eosinophils (%) (Auto) 3.5 4.0 Basophils (%) (Auto) 0.8 1.5 Neutrophils # (Auto) 6.3 5.3 Lymphocytes # (Auto) 1.5 1.4 Monocytes # (Auto) 0.8 0.8 Eosinophils # (Auto) 0.3 0.3 Basophils # (Auto) 0.1 0.1 CBC Comment DIFF FINAL DIFF FINAL Differential Comment Blood Urea Nitrogen 17 12 13 Creatinine 0.66 0.54 0.45 Random Glucose 93 124 88 Total Protein 7.4 Albumin 3.8 Calcium Level 8.6 8.5 8.0 Alkaline Phosphatase 146 Aspartate Amino Transf (AST/SGOT) 25 Alanine Aminotransferase (ALT/SGPT) 27 Total Bilirubin 0.5 Sodium Level 122 126 127 Potassium Level 5.2 4.5 4.5 Chloride Level 89 93 95 Carbon Dioxide Level 23.4 25.1 23.0 Anion Gap 10 8 9 Estimat Glomerular Filtration Rate 114 143 177 Date/Time Source Procedure Growth Status 08/26/17 19:45 Urine Clean Catch Urine Culture - Preliminary IMMATURE GROWTH - REINCUBATE Resulted Result Diagram: 08/27/17 0422 08/27/17 042 Imaging Last Impressions Chest X-Ray 08/26/17 0000 Signed Impressions: Service Date/Time: Saturday, August 26, 2017 20:18 - CONCLUSION: No acute disease. Koko Julian MD Capdeangeloi VTE Risk Assessment Caprini VTE Risk Assessment: Mod/High Risk (score >= 2) Caprini Risk Assessment Model Point Value = 1 Point Value = 2 Point Value = 3 Point Value = 5 Age 41-60 Minor surgery BMI > 25 kg/m2 Swollen legs Varicose veins or History of unexplained or recurrent spontaneous Oral contraceptives or hormone replacement Sepsis (< 1 month) Serious lung disease, including pneumonia (< 1 month) Abnormal pulmonary function Acute myocardial infarction Congestive heart failure (< 1 month) History of inflammatory bowel disease Medical patient at bed rest Age 61-74 Arthroscopic surgery Major open surgery (> 45 min) Laparoscopic surgery (> 45 min) Malignancy Confined to bed (> 72 hours) Immobilizing plaster cast Central venous access Age >= 75 History of VTE Family history of VTE Factor V Leiden Prothrombin [id number] Lupus anticoagulant Anticardiolipin antibodies Elevated serum homocysteine Heparin-induced thrombocytopenia Other congenital or acquired thrombophilia Stroke (< 1 month) Elective arthroplasty Hip, pelvis, or leg fracture Acute spinal cord injury (< 1 month) Prophylaxis Regimen Total Risk Factor Score Risk Level Prophylaxis Regimen 0-1 Low Early ambulation 2 Moderate Order ONE of the following: *Sequential Compression Device (SCD) *Heparin 5000 units SQ BID 3-4 Higher Order ONE of the following medications: *Heparin 5000 units SQ TID *Enoxaparin/Lovenox 40 mg SQ daily (WT < 150 kg, CrCl > 30 mL/min) *Enoxaparin/Lovenox 30 mg SQ daily (WT < 150 kg, CrCl > 10-29 mL/min) *Enoxaparin/Lovenox 30 mg SQ BID (WT < 150 kg, CrCl > 30 mL/min) AND/OR *Sequential Compression Device (SCD) 5 or more Highest Order ONE of the following medications: *Heparin 5000 units SQ TID (Preferred with Epidurals) *Enoxaparin/Lovenox 40 mg SQ daily (WT < 150 kg, CrCl > 30 mL/min) *Enoxaparin/Lovenox 30 mg SQ daily (WT < 150 kg, CrCl > 10-29 mL/min) *Enoxaparin/Lovenox 30 mg SQ BID (WT < 150 kg, CrCl > 30 mL/min) AND *Sequential Compression Device (SCD) Assessment and Plan Assessment and Plan Severe Hyponatremia: Na on admission was 122, status post gentle hydration now 127. Check BMP every 6 hours. Hold normal saline due to history of CHF. Fluid restriction to 1000 mls. Check serum osmolality and urine osmolality, urine sodium and creatinine levels. Suspect hyponatremia may be related to patient's severe diarrhea. Monitor closely. Avoid overcorrecting too quickly. Severe Diarrhea: Per patient, this has been going on for at least one week however per worsen after being on Augmentin. We'll check C. difficile in the stool, check other stool studies including hemoccult as pt's tells us that he has had 14lbs weight loss in the past month. Patient is known to Dr Madden, control center operator, will place a consult. Urinary incontinence: known to Dr. Shook, urologist, consult has been placed. Recently treated for UTI w augmentin. HTN: somewhat elevated. resumed home meds, vasotec prn Hyperkalemia: K 5.2 on admission, now resolved. Other chronic medical problems including: COPD, atrial fib, CHF, CAD, hyperlipidemia, hypothyroidism: stable. All home meds resumed. DVT proph: eliquis Code Status full per patient Discussed Condition With patient and pt's (over the phone) Etta Byrd MD Aug 27, 2017 15:27
[2017-08-27] MEDS ORDERED: ENALAPRILAT 1.25 MG/ML VIAL IV PUSH PRN (15:45)
[2017-08-27 16:00] VITALS: BP 158/70; PULSE 80; RESP 18; TEMP 97; O2SAT 95
[2017-08-27 16:55] LABS: BICARBONATE 26.5 MEQ/L (21.0-32.0)
--- NOTE | 2017-08-27 17:43 | MB ---
cc: ALISA PERRIN DATE OF CONSULTATION 08/27/2017 HISTORY OF THE PRESENT ILLNESS This is a pleasant 87-year-old male who is followed by Dr. Shook who has a history of incontinence. The patient states that he had a procedure done recently by Dr. Shook and has persistent leakage. He states he has both urge incontinence and incontinence while sitting in the chair. He has also been tried on medication for this problem but he states that it gives him diarrhea. He was admitted and found to have hyponatremia with a sodium of 123. The patient admits to history of prostate cancer for which he received radiation treatment in the past. 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 PAST MEDICAL HISTORY His medical history includes: 1. COPD. 2. Atrial fibrillation. 3. Congestive heart failure. 4. Coronary artery disease. 5. Hyperlipidemia. 6. Hypertension. 7. Hypothyroidism. 8. Bladder tumor resection. 9. Urinary tract infection. PAST SURGICAL HISTORY 1. Notable for pacemaker. 2. Cardiac stents. 3. Bladder tumor. 4. Transurethral resection of bladder tumor. 5. Esophageal dilatation. 6. Cystoscopy with urethral dilatation. MEDICATIONS Please refer to the chart. ALLERGIES Please refer to the chart. FAMILY HISTORY Noted for heart disease. SOCIAL HISTORY A prior smoker but quit. Denies any alcohol or drug use. REVIEW OF SYSTEMS He notes incontinence, diarrhea. Denies chest pain, depression. Denies shortness of breath. Denies headaches. Denies gait disturbances. The remaining review of systems were reviewed and were negative. PHYSICAL EXAMINATION VITAL SIGNS: His present vitals, temperature 98.1, heart rate 66, respiratory 18, 174 72 is his blood pressure, 98% on room air. GENERAL: He is well-developed, well-nourished 87-year-old male in no acute stress. HEENT is normocephalic, atraumatic. Pupils equal, round, reactive to light. Extraocular movements intact. NECK: Supple. HEART: Regular rate and rhythm. LUNGS: Clear. ABDOMEN: Soft. Nondistended. Nontender. GENITOURINARY: Normal phallus. Testes descended. EXTREMITIES: Show no cyanosis, clubbing or edema. NEUROLOGIC: Cranial nerves are intact II-XII. SKIN: No lesions are identified. MUSCULOSKELETAL: No cyanosis, clubbing or edema. PSYCHIATRIC: Generalized mood. LABORATORY DATA White count 7.9, hemoglobin 13.3, hematocrit 39.4, platelet count 152. Sodium 126, potassium 5.0, chloride 91, CO2 26.5, BUN 13, creatinine 0.5, glucose of 87. Urinalysis shows negative white cells, negative red cells. Renal bladder ultrasound was performed which showed bilateral kidneys are sonographically normal and free void volume was 435 mL with postvoid residual of 19 mL. ASSESSMENT An 87-year-old male with history of prostate cancer with urinary incontinence status post recent procedure by Dr. Shook. Would recommend follow-up with Dr. Shook as an outpatient. Hopefully due to recent surgery his symptoms will improve over time and his incontinence well resolve. No evidence of bladder outlet obstruction with minimal postvoid residual on renal bladder ultrasound. Would not recommend anticholinergics as he had a bad reaction to them in the past. Thank you for the consult and allowing me to participate in the care of this patient. Alisa GRANGER/SHWETA /5:24 PM /5:33 PM
--- NOTE | 2017-08-27 18:57 | EKG ---
Date Performed: 08/26/2017 Time Performed: 20:18:41 PTAGE: 87 years EKG: ATRIAL FIBRILLATION ELECTRONIC VENTRICULAR PACEMAKER MODERATE ST DEPRESSION ABNORMAL ECG PREVIOUS TRACING : 07/20/2017 19.34 Compared to the previous tracing rate slower, paced rhythm present DOCTOR: Sang Calhoun Interpretating Date/Time 08/27/2017 18:56:21
[2017-08-27 20:00] VITALS: BP 115/68; PULSE 73; RESP 18; TEMP 96.5; O2SAT 95
[2017-08-27 21:45] LABS: POTASSIUM 4.6 MEQ/L (3.5-5.1)
[2017-08-27 21:48] LABS: BICARBONATE 26.7 MEQ/L (21.0-32.0)
[2017-08-27] MEDS: LATANOPROST 0.005% OPHT SOLN 2.5 ML BTL EACH EYE SCH (21:56)
[2017-08-28] VITALS: BP 119/69; PULSE 59; RESP 20; TEMP 97.9; O2SAT 98
[2017-08-28] MEDS: DILTIAZEM HCL 30 MG TAB PO SCH ×5 (00:16→22:33)
[2017-08-28] MEDS: POTASSIUM CHLORIDE 10 MEQ CAP PO SCH ×3 (00:17→22:34)
[2017-08-28 00:27] LABS: C. DIFF EPI 027 PRESUMPTIVE NEGATIVE (NEGATIVE)
[2017-08-28 04:00] VITALS: BP 124/68; PULSE 60; RESP 20; TEMP 97.3; O2SAT 97
[2017-08-28 04:40] LABS: POTASSIUM 4.8 MEQ/L (3.5-5.1)
[2017-08-28 04:43] LABS: BICARBONATE 23.3 MEQ/L (21.0-32.0)
[2017-08-28] MEDS: LEVOTHYROXINE SODIUM 88 MCG TAB PO SCH (05:28)
--- NOTE | 2017-08-28 06:25 | MB ---
cc: JOSH HARRINGTON M.D. DATE OF 1930 DATE OF 08/27/[address] Drew REASON FOR REFERRAL Diarrhea. Thank you for the consultation. HISTORY OF PRESENT ILLNESS An 87-year-old gentleman with multiple medical problems, came in as he was not feeling well. The patient apparently has diarrhea and he stated since Friday and he was started on Augmentin 5 days ago according to his and she said that after he was started on Augmentin then he started having loose stools, the worst one on Friday. Yesterday he had about four bowel movements and he was taking the Augmentin for UTI and today he only had three bowel movements, according to him. He denied any abdominal pain. No nausea, no vomiting, no other GI symptoms. PAST MEDICAL HISTORY 1. Atrial fibrillation. 2. Congestive heart failure. 3. Coronary artery disease. 4. Hyperlipidemia. 5. Bladder tumor status post resection. 6. UTI. 7. COPD. ALLERGIES Multiple allergies reviewed in the chart. MEDICATIONS Reviewed in the chart. PAST SURGICAL HISTORY 1. Esophageal dilation. 2. Cystoscopy. 3. Bladder tumor removal. 4. Pacemaker. 5. Stent placement. FAMILY HISTORY Significant for [place]. SOCIAL HISTORY Used to smoke but stopped a long time ago. No alcohol, no drugs. PHYSICAL EXAMINATION GENERAL: Alert, oriented, hard of hearing, sitting in the chair, comfortable. HEENT: Pupils are reactive to light. NECK: Supple. CHEST: Clear to auscultation and percussion. CARDIAC: Irregularly irregular with A-fib. No murmur, no gallop. ABDOMEN: Soft, nondistended, nontender. Positive bowel sounds. EXTREMITIES: No edema, clubbing or cyanosis. NEUROLOGIC: Intact. Psychologically appropriate. LABORATORY DATA Normal CBC including white count at 7.9, hemoglobin 13.3, platelets 152. Chemistry: The patient has sodium of 122 was corrected to 126. Total bilirubin 0.5, AST, ALT normal. RENAL ULTRASOUND Normal ultrasound and pre and post with bladder volume was evaluated ASSESSMENT AND PLAN An 87-year-old gentleman who has UTI being treated with Augmentin until today which was stopped. The patient has significant diarrhea according to his . Not clear how much this is effect of the antibiotics, side effect versus possible infection. Because of that we are going to order stool studies for ova and parasites and C-diff and also we will check for culture and sensitivity. Meanwhile we will continue supportive care and feeding the patient. I would not start any treatment at this time unless there is significant finding. MD GEORGE Golden/SSB /8:31 PM /6:19 AM
[2017-08-28 07:54] VITALS: BP 159/80; PULSE 65; RESP 18; TEMP 98; O2SAT 98
[2017-08-28] MEDS: PRAVASTATIN SOD 20 MG TAB PO SCH (07:57)
[2017-08-28] MEDS: METOPROLOL TARTRATE 100 MG TAB PO SCH ×2 (07:57→22:33)
[2017-08-28] MEDS: ALBUTEROL SULFATE 90 MCG/ACT HFA 8 GM INHALER INH SCH ×4 (07:57→22:37)
[2017-08-28] MEDS: TIOTROPIUM BROMIDE 18 MCG INH INH SCH (07:57)
[2017-08-28] MEDS: LISINOPRIL 10 MG TAB PO SCH (07:58)
[2017-08-28] MEDS: cloNIDine HCL 0.1 MG TAB PO SCH (07:58)
[2017-08-28] MEDS: SPIRONOLACTONE 25 MG TAB PO SCH (07:58)
[2017-08-28] MEDS: MAGNESIUM OXIDE 400 MG TAB PO SCH (07:58)
[2017-08-28] MEDS: DOCUSATE SODIUM 50 MG/SENNA 8.6 MG TAB PO SCH (07:58)
[2017-08-28] MEDS: ASPIRIN 81 MG CHEW TAB CHEW SCH (07:59)
[2017-08-28] MEDS: APIXABAN 5 MG TABLET PO SCH ×2 (07:59→22:33)
[2017-08-28] MEDS: FUROSEMIDE 40 MG TAB PO SCH (07:59)
[2017-08-28] MEDS: SODIUM CHLORIDE 0.9% FLUSH 10 ML FLUSH IV FLUSH SCH ×2 (08:06→22:34)
[2017-08-28] MEDS: HEPARIN SODIUM - SQ 10,000 UNITS/ML VIAL SQ SCH (09:21)
[2017-08-28 10:19] LABS: BICARBONATE 27.5 MEQ/L (21.0-32.0)
--- NOTE | 2017-08-28 11:41 | HHI.PR ---
Subjective Remarks Patient reports is feeling better today. No further diarrhea today. His family does not want him to return at the previous [facility] facility. They want to go to a different nursing facility. Objective Vitals Vital Signs Date Time Temp Pulse Resp B/P (MAP) Pulse Ox O2 Delivery O2 Flow Rate FiO2 08/28/17 07:54 98.0 65 18 159/80 (106) 98 08/28/17 04:00 97.3 60 20 124/68 (86) 97 08/28/17 00:00 97.9 59 20 119/69 (86) 98 08/27/17 20:00 96.5 73 18 115/68 (84) 95 08/27/17 16:00 97.0 80 18 158/70 (99) 95 08/27/17 12:00 98.0 80 18 150/72 (98) 95 I/O 08/27/17 08/27/17 08/27/17 08/28/17 08/28/17 08/28/17 07:00 15:00 23:00 07:00 15:00 23:00 Intake Total 1899 ml 480 ml Balance 1899 ml 480 ml Intake Oral 1080 ml 480 ml IV Total 819 ml # Voids 4 2 # Bowel Movements 2 1 1 Result Diagram: 08/27/17 0422 08/28/17 0907 Objective Remarks GENERAL: Elderly male in no apparent distress. CARDIOVASCULAR: Normal rate and regular rhythm without murmurs, gallops, or rubs. RESPIRATORY: Good respiratory efforts. Breath sounds equal and clear to auscultation bilaterally. GASTROINTESTINAL: Abdomen soft, non-tender, non-distended. Normal active bowel sounds MUSCULOSKELETAL: Extremities without cyanosis, or edema. NEURO: Alert & Oriented x4 to person, place, time, situation. Moves all ext x4 PSYCH: Appropriate mood and affect. A/P Assessment and Plan 87-year-old male with: Severe Hyponatremia: Likely secondary to dehydration from diarrhea. Na on admission was 122, - improving. Continue IV fluid - Reassess tomorrow morning and consider discontinuing fluid if sodium acceptable. History of CHF. Severe Diarrhea: Per patient, this has been going on for at least one week however per worsen after being on Augmentin. C. difficile is negative. Discussed with GI who agrees the symptoms are likely side effects of antibiotics. Diarrhea resolved. Urinary incontinence: Patient known to Dr. Shook, urologist, consult has been placed. Recently treated for UTI w Augmentin. Patient seen by urology who advised outpatient follow-up. HTN: somewhat elevated. resumed home meds, vasotec prn Hyperkalemia: K 5.2 on admission, now resolved. Other chronic medical problems including: COPD, atrial fib, CHF, CAD, hyperlipidemia, hypothyroidism: stable. All home meds resumed. DVT proph: eliquis Discharge Planning Plan to discharge tomorrow to SNF if sodium continues to improve and arrangements are made by case management. Gregor Cárdenas MD Aug 28, 2017 11:41
--- NOTE | 2017-08-28 11:47 | HHI.GIFU ---
Subjective Remarks Patient is doing well today, no significant diarrhea yesterday evening and until this morning, stated that it's a little bit loose but much better, no abdominal pain, no blood in his stool. Objective Vitals I&O Vital Signs Date Time Temp Pulse Resp B/P (MAP) Pulse Ox O2 Delivery O2 Flow Rate FiO2 08/28/17 07:54 98.0 65 18 159/80 (106) 98 08/28/17 04:00 97.3 60 20 124/68 (86) 97 08/28/17 00:00 97.9 59 20 119/69 (86) 98 08/27/17 20:00 96.5 73 18 115/68 (84) 95 08/27/17 16:00 97.0 80 18 158/70 (99) 95 08/27/17 12:00 98.0 80 18 150/72 (98) 95 I/O 08/27/17 08/27/17 08/27/17 08/28/17 08/28/17 08/28/17 07:00 15:00 23:00 07:00 15:00 23:00 Intake Total 1899 ml 480 ml Balance 1899 ml 480 ml Intake Oral 1080 ml 480 ml IV Total 819 ml # Voids 4 2 # Bowel Movements 2 1 1 Laboratory Laboratory Tests Test 08/27/17 15:15 08/27/17 21:16 08/27/17 21:25 08/28/17 04:00 Blood Urea Nitrogen 13 18 16 Creatinine 0.52 0.55 0.55 Random Glucose 87 83 92 Calcium Level 8.8 8.9 8.5 Sodium Level 126 126 127 Potassium Level 5.0 4.6 4.8 Chloride Level 91 92 95 Carbon Dioxide Level 26.5 26.7 23.3 Anion Gap 9 7 9 Estimat Glomerular Filtration Rate 150 140 140 Stool C. difficile Toxin (PCR) NEGATIVE Stl C. difficile Toxin Epiderm 027 PRESUMPTIVE NEGATIVE Serum Osmolality 273 Test 08/28/17 09:07 Blood Urea Nitrogen 15 Creatinine 0.64 Random Glucose 163 Calcium Level 8.9 Sodium Level 126 Potassium Level 5.0 Chloride Level 93 Carbon Dioxide Level 27.5 Anion Gap 6 Estimat Glomerular Filtration Rate 118 Date/Time Source Procedure Growth Status 08/27/17 21:16 Stool Stool Cryptosporidium Exam Pending Resulted 08/27/17 21:16 Stool Stool Stool Pus (LAYO) - Final RARE WBC Resulted 08/27/17 21:16 Stool Stool Giardia Antigen (LAYO) Pending Resulted 08/27/17 21:16 Stool Stool Stool Occult Blood (LAYO) Pending Resulted 08/26/17 19:45 Urine Clean Catch Urine Culture - Final 10-50,000 CFU/ML MIXED EDWARD... Complete Physical Exam HEENT: Pupils round and reactive to light; normocephalic; atraumatic; no jaundice. Throat is clear.Very hard of hearing NECK: Neck is supple, no JVD, no lymphadenopathy. CHEST: Chest is clear to auscultation and percussion. CARDIAC: Regular rate and rhythm with no murmur gallop or rubs. ABDOMEN: Soft, nondistended, nontender; no hepatosplenomegaly; bowel sounds are present in all four quadrants. EXTREMITIES: No clubbing, cyanosis, or edema. SKIN: Normal; no rash; no jaundice. PROFESSOR OF ENVIRONMENTAL STUDIES: No focal deficits; alert and oriented times three. Assessment and Plan Plan Patient [id number] gentleman who has UTI, was taking Augmentin for a few days , started having diarrhea a few days ago, he thinks it's related to the antibiotic His diarrhea subsided significantly only 2 bowel movements in the last 12-14 hours that is loose not diarrhea Stool culture were obtained to rule out C. difficile or other etiology Advance diet as tolerated Patient does not want any procedures If cultures are negative and no C. difficile and his diarrhea continued to improve he can be on regular diet and discharge from GI point Tacho Mason MD Aug 28, 2017 11:47
[2017-08-28 12:00] VITALS: BP 107/57; PULSE 60; RESP 18; TEMP 96.5; O2SAT 97
[2017-08-28] MEDS: SODIUM CHLOR 0.9% 1000 ML INJ 1,000 ML IV SCH (12:47)
[2017-08-28 16:00] VITALS: BP 119/59; PULSE 59; RESP 20; TEMP 96.9; O2SAT 96
[2017-08-28 16:23] LABS: POTASSIUM 5.4 MEQ/L (3.5-5.1)
[2017-08-28 16:27] LABS: BICARBONATE 25.4 MEQ/L (21.0-32.0)
[2017-08-28 20:00] VITALS: BP 132/61; PULSE 66; RESP 20; TEMP 97.5; O2SAT 96
[2017-08-28 21:55] LABS: POTASSIUM 5.1 MEQ/L (3.5-5.1)
[2017-08-28 21:58] LABS: BICARBONATE 26.9 MEQ/L (21.0-32.0)
[2017-08-28] MEDS: LATANOPROST 0.005% OPHT SOLN 2.5 ML BTL EACH EYE SCH (22:33)
[2017-08-29] VITALS: BP 156/73; PULSE 60; RESP 18; TEMP 96.7; O2SAT 90
[2017-08-29] MEDS: SODIUM CHLOR 0.9% 1000 ML INJ 1,000 ML IV SCH ×3 (00:35→17:45)
[2017-08-29] MEDS: LEVOTHYROXINE SODIUM 88 MCG TAB PO SCH (05:27)
[2017-08-29] MEDS: DILTIAZEM HCL 30 MG TAB PO SCH ×4 (05:27→23:18)
[2017-08-29 08:00] VITALS: BP 139/65; PULSE 63; RESP 18; TEMP 98.4; O2SAT 94
[2017-08-29] MEDS: SODIUM CHLORIDE 0.9% FLUSH 10 ML FLUSH IV FLUSH SCH ×2 (09:00→21:07)
[2017-08-29] MEDS: TIOTROPIUM BROMIDE 18 MCG INH INH SCH ×2 (09:00→09:12)
[2017-08-29] MEDS: ALBUTEROL SULFATE 90 MCG/ACT HFA 8 GM INHALER INH SCH ×4 (09:12→21:07)
[2017-08-29] MEDS: POTASSIUM CHLORIDE 10 MEQ CAP PO SCH ×2 (09:12→21:07)
[2017-08-29] MEDS: FUROSEMIDE 40 MG TAB PO SCH (09:12)
[2017-08-29] MEDS: LISINOPRIL 10 MG TAB PO SCH (09:12)
[2017-08-29] MEDS: MAGNESIUM OXIDE 400 MG TAB PO SCH (09:13)
[2017-08-29] MEDS: PRAVASTATIN SOD 20 MG TAB PO SCH (09:13)
[2017-08-29] MEDS: SPIRONOLACTONE 25 MG TAB PO SCH (09:13)
[2017-08-29] MEDS: ASPIRIN 81 MG CHEW TAB CHEW SCH (09:13)
[2017-08-29] MEDS: cloNIDine HCL 0.1 MG TAB PO SCH (09:13)
[2017-08-29] MEDS: APIXABAN 5 MG TABLET PO SCH ×2 (09:13→21:07)
[2017-08-29] MEDS: METOPROLOL TARTRATE 100 MG TAB PO SCH ×2 (09:13→21:07)
[2017-08-29 10:22] LABS: POTASSIUM 4.5 MEQ/L (3.5-5.1)
[2017-08-29 10:26] LABS: BICARBONATE 25.4 MEQ/L (21.0-32.0)
[2017-08-29] MEDS ORDERED: FURO20TA PO (11:11)
--- NOTE | 2017-08-29 11:23 | HHI.DS ---
Discharge Summary Admission Date Aug 27, 2017 at 15:53 Discharge Date: Aug 29, 2017 Admitting Diagnosis hyponatremia (1) Diarrhea ICD Code: R19.7 - Diarrhea, unspecified (2) Hyponatremia ICD Code: E87.1 - Hypo-osmolality and hyponatremia Status: Acute (3) Atrial fibrillation ICD Code: I48.91 - Atrial fibrillation Status: Acute (4) Hypertension ICD Code: I10 - Hypertension Status: Acute Procedures None Brief History - From Admission History of present illness from the admitting physician Pt is a 87 yr old male w PMHx COPD, atrial fib, CHF, CAD, hyperlipidemia, HTN, hypothyroidism, bladder tumor s/p resection, recent UTI, came in because of diarrhea, hyponatremia and not feeling well. Pt is a poor historian but is able to tell , me that he had a procedure done on his bladder 3-4 days ago by his urologist and since he has been having a "leaky bladder". Pt also states that he was on a medication which cause severe diarrhea. Today he has had 3 loose stools already. states that he has been having diarrhea x 1 week. He then tells me that his knowns more than him and is agreeable for me to call his . I did call his , Mrs Natacha Beck ([phone]) and she tells me that his recent labs on 08/20, his sodium was down to 123, then it went up on 08/25 it was 127. He had a UTI and was on augmentin x 6 days and he developped severe diarrhea, last day of augmentin was 08/25/17. Diarrhea x 1 week off and on since getting diagnosed w UTI and worsened since being started on the augmentin (which was started 08/20/17). On friday, per pt spent all day in the bathroom, was prescribed Questran. He took two doses one dose on friday in the PM and another on friday in the AM, that didn't help w the diarrhea. Since, pt has lost appetite, lost 14 lbs this past month. He sees a [employer] , Dr. Madden. scheduled for EGD, due to trouble swallowing, and has been scheduled for another esophageal dilatation . Per , pt had a Cystoscopic/urethral dilation 07/07/17, has had lots of problems since procedure. Urologist, is Dr. Shook. Apparently pt also having urinary incontinence, s/p radiation cystitis and proctitis. 60 episodes of hyperbaric oxygen. s/p bladder tumor removal which was benign. He was on nyrbetriq and now off of it and was started on oxybytynin which also caused constipation and not being able to urinate. Pt denies any CP/SOB/N/V at this time, no lightheadedness or dizziness. CBC/BMP: 08/27/17 0422 08/29/17 0920 Significant Findings Laboratory Tests Test 08/26/17 19:45 08/26/17 19:55 08/27/17 03:00 08/27/17 04:22 Urine Occult Blood SMALL (NEG) Urine Leukocyte Esterase TRACE (NEG) Monocytes (%) (Auto) 9.0 % (0.0-8.0) 9.6 % (0.0-8.0) Alkaline Phosphatase 146 U/L (45-117) Sodium Level 122 MEQ/L (136-145) 126 MEQ/L (136-145) 127 MEQ/L (136-145) Potassium Level 5.2 MEQ/L (3.5-5.1) Chloride Level 89 MEQ/L (98-107) 93 MEQ/L (98-107) 95 MEQ/L (98-107) Creatinine 0.54 MG/DL (0.60-1.30) 0.45 MG/DL (0.60-1.30) Random Glucose 124 MG/DL (74-106) Red Blood Count 4.27 MIL/MM3 (4.50-5.90) Calcium Level 8.0 MG/DL (8.5-10.1) Test 08/27/17 15:15 08/27/17 21:16 08/27/17 21:25 08/28/17 04:00 Creatinine 0.52 MG/DL (0.60-1.30) 0.55 MG/DL (0.60-1.30) 0.55 MG/DL (0.60-1.30) Sodium Level 126 MEQ/L (136-145) 126 MEQ/L (136-145) 127 MEQ/L (136-145) Chloride Level 91 MEQ/L (98-107) 92 MEQ/L (98-107) 95 MEQ/L (98-107) Serum Osmolality 273 MOSM/KG (275-295) Test 08/28/17 09:07 08/28/17 15:57 08/28/17 21:36 08/29/17 09:20 Random Glucose 163 MG/DL (74-106) 113 MG/DL (74-106) 162 MG/DL (74-106) Sodium Level 126 MEQ/L (136-145) 125 MEQ/L (136-145) 126 MEQ/L (136-145) 129 MEQ/L (136-145) Chloride Level 93 MEQ/L (98-107) 92 MEQ/L (98-107) 94 MEQ/L (98-107) 95 MEQ/L (98-107) Blood Urea Nitrogen 20 MG/DL (7-18) 19 MG/DL (7-18) Potassium Level 5.4 MEQ/L (3.5-5.1) Calcium Level 8.4 MG/DL (8.5-10.1) 8.0 MG/DL (8.5-10.1) Imaging Last Impressions Renal Ultrasound 08/27/17 0000 Signed Impressions: Service Date/Time: Sunday, August 27, 2017 13:29 - CONCLUSION: 1. Both kidneys are sonographically normal. 2. Pre-and post void bladder volumes provided above. Oh Johnson MD Chest X-Ray 08/26/17 0000 Signed Impressions: Service Date/Time: Saturday, August 26, 2017 20:18 - CONCLUSION: No acute disease. Koko Julian MD PE at Discharge GENERAL: Elderly male in no apparent distress. CARDIOVASCULAR: Normal rate and regular rhythm without murmurs, gallops, or rubs. RESPIRATORY: Good respiratory efforts. Breath sounds equal and clear to auscultation bilaterally. GASTROINTESTINAL: Abdomen soft, non-tender, non-distended. Normal active bowel sounds MUSCULOSKELETAL: Extremities without cyanosis, or edema. NEURO: Alert & Oriented x4 to person, place, time, situation. Moves all ext x4 PSYCH: Appropriate mood and affect. Pt update on day of discharge Patient reports he is feeling great. No more diarrhea. He is eating well. Hospital Course 87-year-old male admitted with severe diarrhea and hyponatremia. Evaluation and treatment course detailed below: Severe Hyponatremia: Likely secondary to dehydration from diarrhea. Na on admission was 122. The patient appears to have some levels of chronic hyponatremia. Lasix could be contributing. However he also has had diarrhea which might have contributed as well. He was given IV fluid with improvement of sodium to 129. Since he did not appear to be fluid overloaded, Lasix dose was decreased to 20 mg daily. He is asymptomatic. Patient advised to follow- up outpatient with PCP.. Severe Diarrhea on presentation: Per patient, this has been going on for at least one week however per worsen after being on Augmentin. C. difficile is negative. Discussed with GI who agrees the symptoms are likely side effects of antibiotics. Diarrhea resolved. Urinary incontinence: Patient known to Dr. Shook, urologist, consult has been placed. Recently treated for UTI w Augmentin. Patient seen by urology who advised outpatient follow-up. HTN: Continue home meds Hyperkalemia: K 5.2 on admission, now resolved. Other chronic medical problems including: COPD, atrial fib, CHF, CAD, hyperlipidemia, hypothyroidism: stable. All home meds resumed. Pt Condition on Discharge: Good Discharge Disposition: Discharge to SNF Discharge Time: > 30 minutes Discharge Instructions DIET: Follow Instructions for: Heart Healthy Diet Activities you can perform: Regular-No Restrictions Follow up Referrals: [facility]/ with [facility] Continued Medications: Alprazolam (Alprazolam) 0.25 Mg Tab 0.25 MG PO Q8H PRN for ANXIETY, #90 TAB 0 Refills Apixaban (Eliquis) 5 Mg Tab 5 MG PO BID for Blood Clot Prevention, #60 TAB 0 Refills Ascorbate Calcium/Bioflavonoid (Khloe-C 500 mg Tablet) 500 Mg-200 Mg Tablet 500 MG PO DAILY Aspirin (Aspirin) 81 Mg Chew 81 MG CHEW DAILY, TAB 0 Refills Cholecalciferol (Vitamin D3) 1,000 Unit Cap 2000 UNITS PO DAILY for Nutritional Supplement, #1 BOTTLE 0 Refills Clonidine (Clonidine) 0.1 Mg Tab 0.1 MG PO DAILY for Blood Pressure Management, #60 TAB 0 Refills Coenzyme Q10 (Ubidecarenone) (Coq-10 Tr) 100 Mg Cap 100 MG PO DAILY Diltiazem (Cardizem) 30 Mg Tab 30 MG PO Q6HR for Regulate Heart Beat, #120 TAB Fish Oil-Cholecalciferol ([place]-3 Fish Oil/Vitamin) 1,000-1,000 Mg Cap 1 CAP PO DAILY for Nutritional Supplement, CAP 0 Refills Furosemide (Furosemide) 20 Mg Tab 20 MG PO DAILY, #30 TAB 0 Refills Ipratropium-Albuterol Inh (Combivent Respimat Inh) 20-100 Alf/Act Aero 1 PUFF INH QID for Asthma Management, #1 INHALER 0 Refills Lactobacillus Rhamnosus (GG) (Digestive Advantage Probiotic) 1 Chew 1 TAB CHEW DAILY for Nutritional Supplement, TAB 0 Refills Latanoprost Opth Drops (Latanoprost Opth Drops) 0.005% Drops 1 DROP EACH EYE HS for Glaucoma, #2.5 ML 0 Refills Refrigerate until opened. 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, #30 SUPP 0 Refills Metoprolol Tartrate (Metoprolol Tartrate) 100 Mg Tab 100 MG PO BID, #60 TAB 0 Refills Montelukast (Montelukast) 10 Mg Tab 10 MG PO HS, #30 TAB 0 Refills Multiple Vitamins W/ Minerals (Preservision Areds) 1 Tab 1 TAB PO DAILY for Nutritional Supplement, TAB 0 Refills Pitavastatin (Livalo) 1 Mg Tab 1 MG PO DAILY for Cholesterol Management, #30 TAB 0 Refills Polyethylene Glycol-Propylene Glycol Opth Drp (Systane Opth Drops) 0.4-0.3% Soln 1-2 DROP EACH EYE Q6HR PRN for DRY EYE, #1 BOTTLE 0 Refills Potassium Chloride ER (Potassium Chloride ER) 10 Meq Cap 10 MEQ PO BID for Electrolyte Replacement, #60 CAP 0 Refills Spironolactone (Aldactone) 25 Mg Tab 12.5 MG PO DAILY, #30 TAB 0 Refills Gregor Cárdenas MD Aug 29, 2017 11:23
[2017-08-29 12:00] VITALS: BP 100/58; PULSE 60; RESP 18; TEMP 97.6; O2SAT 98
[2017-08-29 16:00] VITALS: BP 127/58; PULSE 60; RESP 18; TEMP 97.2; O2SAT 97
[2017-08-29 20:00] VITALS: BP 143/70; PULSE 71; RESP 18; TEMP 96.9; O2SAT 97
[2017-08-29] MEDS: LATANOPROST 0.005% OPHT SOLN 2.5 ML BTL EACH EYE SCH (21:06)
[2017-08-30] VITALS: BP 127/66; PULSE 60; RESP 18; TEMP 96; O2SAT 97
[2017-08-30] MEDS: LEVOTHYROXINE SODIUM 88 MCG TAB PO SCH (06:19)
[2017-08-30] MEDS: DILTIAZEM HCL 30 MG TAB PO SCH ×2 (06:19→12:23)
[2017-08-30 07:31] VITALS: BP 145/67; PULSE 63; RESP 20; TEMP 96.8; O2SAT 94
[2017-08-30] MEDS: METOPROLOL TARTRATE 100 MG TAB PO SCH (08:55)
[2017-08-30] MEDS: MAGNESIUM OXIDE 400 MG TAB PO SCH (08:55)
[2017-08-30] MEDS: POTASSIUM CHLORIDE 10 MEQ CAP PO SCH (08:56)
[2017-08-30] MEDS: APIXABAN 5 MG TABLET PO SCH (08:56)
[2017-08-30] MEDS: PRAVASTATIN SOD 20 MG TAB PO SCH (08:56)
[2017-08-30] MEDS: cloNIDine HCL 0.1 MG TAB PO SCH (08:57)
[2017-08-30] MEDS: SPIRONOLACTONE 25 MG TAB PO SCH (08:57)
[2017-08-30] MEDS: FUROSEMIDE 40 MG TAB PO SCH (08:58)
[2017-08-30] MEDS: ASPIRIN 81 MG CHEW TAB CHEW SCH (08:58)
[2017-08-30] MEDS: ALBUTEROL SULFATE 90 MCG/ACT HFA 8 GM INHALER INH SCH ×2 (08:59→12:24)
[2017-08-30] MEDS: LISINOPRIL 10 MG TAB PO SCH (08:59)
[2017-08-30] MEDS: TIOTROPIUM BROMIDE 18 MCG INH INH SCH (09:00)
[2017-08-30] MEDS: SODIUM CHLORIDE 0.9% FLUSH 10 ML FLUSH IV FLUSH SCH (09:00)
--- NOTE | 2017-08-30 12:50 | HHI.PR ---
Subjective Remarks Patient complains of urinating a lot. No dysuria. Had 2 bowel movements yesterday which performed. Objective Vitals Vital Signs Date Time Temp Pulse Resp B/P (MAP) Pulse Ox O2 Delivery O2 Flow Rate FiO2 08/30/17 07:31 96.8 63 20 145/67 (93) 94 08/30/17 00:00 96.0 60 18 127/66 (86) 97 08/29/17 20:00 96.9 71 18 143/70 (94) 97 08/29/17 16:00 97.2 60 18 127/58 (81) 97 I/O 08/29/17 08/29/17 08/29/17 08/30/17 08/30/17 08/30/17 07:00 15:00 23:00 07:00 15:00 23:00 Intake Total 1571 ml 750 ml 120 ml Balance 1571 ml 750 ml 120 ml Intake Oral 480 ml 750 ml 120 ml IV Total 1091 ml # Voids 4 4 5 # Bowel Movements 1 1 Result Diagram: 08/27/17 0422 08/29/17 0920 Objective Remarks GENERAL: Well-nourished, well-developed pleasant elderly petite male patient. SKIN: Warm and dry. HEAD: Normocephalic. EYES: No scleral icterus. No injection or drainage. NECK: Supple, trachea midline. No JVD or lymphadenopathy. CARDIOVASCULAR: Irregular rate and rhythm without murmurs, gallops, or rubs. RESPIRATORY: Breath sounds equal bilaterally. No accessory muscle use. GASTROINTESTINAL: Abdomen soft, non-tender, nondistended. EXTREMITIES: No cyanosis, or edema. NEUROLOGICAL: Awake, alert, and oriented x 3. Non-focal. Ambulating with walker , gait fairly steady. Procedures None A/P Problem List: (1) Diarrhea ICD Code: R19.7 - Diarrhea, unspecified (2) Hyponatremia ICD Code: E87.1 - Hypo-osmolality and hyponatremia Status: Acute (3) Atrial fibrillation ICD Code: I48.91 - Atrial fibrillation Status: Acute (4) Hypertension ICD Code: I10 - Hypertension Status: Acute Assessment and Plan 87-year-old male with: Severe Hyponatremia: Likely secondary to dehydration from diarrhea. Na on admission was 122, now 129 - improving. Status post IV fluids. -repeat BMP at [facility] Severe Diarrhea: Per patient, this has been going on for at least one week however per worsen after being on Augmentin. C. difficile is negative. Discussed with GI who agrees the symptoms are likely side effects of antibiotics. Diarrhea resolved. Urinary incontinence: Patient known to Dr. Shook, urologist, consult has been placed. Recently treated for UTI w Augmentin. Patient seen by urology who advised outpatient follow-up. HTN: somewhat elevated. resumed home meds, vasotec prn Hyperkalemia: K 5.2 on admission, now resolved. Other chronic medical problems including: COPD, atrial fib, CHF, CAD, hyperlipidemia, hypothyroidism: stable. All home meds resumed. DVT proph: devora D/w pt's son at bedside. DC to SNF today. Chely Marcos MD Aug 30, 2017 12:50
== END 2017-08-30 13:49 | DRG 394 ==
LOC: PHED 18:56 → PHEDA 22:00 → PH3A 23:27 → OBSVTOIN 08-27 15:53
PROVIDERS: ADMIT Family Medicine; ATTEND Family Medicine
DX: K52.1 Toxic gastroenteritis and colitis (principal); E87.1 Hypo-osmolality and hyponatremia; I48.91 Unspecified atrial fibrillation; I11.0 Hypertensive heart disease with heart failure; I50.9 Heart failure, unspecified; E87.5 Hyperkalemia; J44.9 Chronic obstructive pulmonary disease, unspecified; G47.31 Primary central sleep apnea; F32.9 Major depressive disorder, single episode, unspecified; T36.0X5A Adverse effect of penicillins, initial encounter; E03.9 Hypothyroidism, unspecified; N39.41 Urge incontinence; I25.10 Atherosclerotic heart disease of native coronary artery without angina pectoris; E78.5 Hyperlipidemia, unspecified; M19.042 Primary osteoarthritis, left hand; M19.041 Primary osteoarthritis, right hand; H91.93 Unspecified hearing loss, bilateral; K21.9 Gastro-esophageal reflux disease without esophagitis; H40.9 Unspecified glaucoma; Z85.46 Personal history of malignant neoplasm of prostate; Z86.73 Personal history of transient ischemic attack (TIA), and cerebral infarction without residual deficits; Z87.891 Personal history of nicotine dependence; Z95.1 Presence of aortocoronary bypass graft; Z95.5 Presence of coronary angioplasty implant and graft; Z95.828 Presence of other vascular implants and grafts; Z95.0 Presence of cardiac pacemaker; Z92.3 Personal history of irradiation
CPT/HCPCS: 71010; 76775; 80048; 80053; 81001; 82272; 83930; 85025; 87086; 87205; 87328; 87329; 87493; 87506; 93005; 96360; 96361; 96372; G0378; J1644; J7030; J7050

== ENCOUNTER → 2017-12-08 | Day surgery (SDC) | payer MEDICARE, BC, OTHER ==
[~2017-12-08] MED LIST changes: +ASPI-516 CHEW; -ASPI81TA82 PO; -BETH50TA PO; -BIOT5000 PO; -CALCTAB23 PO; +CANA10002 RECTAL; +CHOL10008 PO; -CHRO200C PO; +CLON0.1T PO; -CO Q10CA PO; -COLL500C PO; +COQ-100C5 PO; -CRES20TA PO; +ESTETAB3 PO; -FURO1TAB93 PO; +FURO20TA PO; +IPRAAER INH; -LATA.005%O EACH EYE; +LATA0.002 EACH EYE; -LEVE250 PO; -LEVO50TA4 PO; +LISI10TA3 PO; -LISI20 PO; +LIVA1TAB PO; +LUTE6CAP2 PO; -LUTE6TAB PO; -MAGN30TA2 PO; +MAGN500T2 PO; +MECL12.574 PO; -MECL25 PO; -METO100 PO; +METO100T PO; -MONT10 PO; +MONT10TA4 PO; -NITR4.9S3 SL; +OCUVTAB4 PO; +OMEGCAP PO; -PANT40IN3 PO; -PENI250T PO; -POTA-267 PO; +POTA10CA PO; +PROB1CHW4 CHEW; +PROPOFOL 200 MG/20 ML AMP IV ONE; -SALM50I INH; +SPIR25 PO; -SPIRCAP INH; +SYNT88TA PO; +SYSTSOL EACH EYE; -VITATAB11 PO
== END | disposition home or self-care (01) ==
LOC: ESDC 11:00
PROVIDERS: ATTEND Internal Medicine Gastroenterology
DX: R12 Heartburn (principal); R13.10 Dysphagia, unspecified; K20.9 Esophagitis, unspecified; K31.9 Disease of stomach and duodenum, unspecified
CPT/HCPCS: 88305; 88312

== ENCOUNTER → 2018-01-21 | Outpatient (CLI) | payer MEDICARE, BC, OTHER ==
[~2018-01-21] VITALS: Ht 160 cm; Wt 61.5 kg
[~2018-01-21] MED LIST changes: +BENZOCAINE 20% ORAL SPR 60 ML CAN OROPHARYNG ONE; +LACTATED RINGER'S 1000 ML IV PRN; +LIDOCAINE HCL 2% JELLY 5 ML SYRINGE TOPICAL ONE; +METOPROLOL TARTRATE 25 MG TAB PO PRN; -PROPOFOL 200 MG/20 ML AMP IV ONE; +SODIUM CHLORID 0.9% 500 ML IV PRN
[2018-01-21 07:57] VITALS: BP 170/93; PULSE 131; RESP 18; TEMP 98.3; O2SAT 98
== END ==
LOC: HSDC 06:30
PROVIDERS: ATTEND Internal Medicine Gastroenterology
DX: R13.10 Dysphagia, unspecified (principal)
CPT/HCPCS: 91010

== ENCOUNTER → 2018-02-20 | Outpatient (CLI) | payer MEDICARE, BC, OTHER ==
[~2018-02-20] VITALS: Ht 157.5 cm; Wt 57.5 kg
[~2018-02-20] MED LIST changes: -BENZOCAINE 20% ORAL SPR 60 ML CAN OROPHARYNG ONE; +CHLORHEXIDINE GLUCONATE 2 % 1 PACK (2 CLOTHS) TOPICAL PRN; -LIDOCAINE HCL 2% JELLY 5 ML SYRINGE TOPICAL ONE; +PHENYLEPH/NS 1000 MCG/10 ML SYR IV ONE; +PROPOFOL 200 MG/20 ML AMP IV ONE
--- NOTE | 2018-02-20 10:11 | GIPROC ---
[facility] [address] [facility]. [facility], [address] EGD PROCEDURE REPORT EXAM DATE: 02/20/2018 PATIENT NAME: Bismark Beck MR #: [id number] BIRTHDATE: 1930 ATTENDING: Jaky Madden MD ORDER #: [id number] CHAIN MENDER: Jenifer Copeland and Kayley Davis STATUS: outpatient INDICATIONS: The patient is a 87 yr old male here for an EGD due to dyspepsia and dysphagia PROCEDURE PERFORMED: EGD w/ biopsy MEDICATIONS: None and Per Anesthesia. TOPICAL ANESTHETIC: CONSENT: The patient understands the risks and benefits of the procedure and understands that these risks include, but are not limited to: sedation, allergic reaction, infection, perforation and/or bleeding. Alternative means of evaluation and treatment include, among others: physical exam, x-rays, and/or surgical intervention. The patient elects to proceed with this endoscopic procedure. medical equipment was checked for proper function. Hand hygiene and appropriate measures for infection prevention was taken. After the risks, benefits and alternatives of the procedure were thoroughly explained, Informed consent was verified, confirmed and timeout was successfully executed by the treatment team. The patient was anesthetized with topical anesthesia and the EC-3490Li (Pedi C) endoscope was introduced through the mouth and advanced to the second portion of the duodenum. Retroflexed views revealed no abnormalities The gastroscope was then slowly withdrawn and removed. ESOPHAGUS: There was LA Class B esophagitis noted. A biopsy was performed using cold forceps. Sample sent for histology. Sample obtained to rule out Mayen's esophagus. STOMACH: There was erythematous moderate gastritis in the gastric antrum. DUODENUM: The duodenal mucosa appeared normal in the bulb and second portion of the duodenum. ADVERSE EVENTS: There were no complications. IMPRESSIONS: 1. There was LA Class B esophagitis noted; biopsy was performed 2. There was erythematous gastritis in the gastric antrum 3. Normal duodenal mucosa in the bulb and second portion of the duodenum 4. Retroflexed views revealed no abnormalities RECOMMENDATIONS: 1. Await biopsy results. Biopsy results will not be ready for 7-10 days. If you don't hear from us in two weeks, call our office for biopsy results. 2. Anti-reflux regimen 3. Diflucan 100mg daily x 5 days PATIENT CONDITION: stable DISPOSITION: Home REPEAT EXAM: Return as needed for EGD pending biopsy results Jaky Madden MD eSigned: Jaky Madden MD 02/20/2018 10:11 AM cc: Kashif Plascencia M.D. PATIENT NAME: Bismark Beck MR#: [id number]
--- NOTE | 2018-02-20 10:25 | GIPROC ---
[facility] [address] [facility]. [facility], [address] COLONOSCOPY PROCEDURE REPORT EXAM DATE: 02/20/2018 PATIENT NAME: Bismark Beck MR #: [id number] BIRTHDATE: 1930 ENDOSCOPIST: Jaky Madden MD ORDER #: [id number] WALL WORKER: Jenifer Copeland and Kayley Davis STATUS: outpatient INDICATIONS: The patient is a 87 yr old male here for a colonoscopy due to control of bleeding and hematochezia PROCEDURE PERFORMED: Colonoscopy with ablation MEDICATIONS: None and Per Anesthesia. PREP QUALITY: The Joanna Bowel Prep Score was Right colon 3, Mid colon 2, and Left colon 2. Total = 7. ESTIMATED BLOOD LOSS: None CONSENT: The patient understands the risks and benefits of the procedure and understands that these risks include, but are not limited to: sedation, allergic reaction, infection, perforation and/or bleeding. Alternative means of evaluation and treatment include, among others: physical exam, x-rays, and/or surgical intervention. The patient elects to proceed with this endoscopic procedure. medical equipment was checked for proper function. Hand hygiene and appropriate measures for infection prevention was taken. After the risks, benefits and alternatives of the procedure were thoroughly explained, Informed consent was verified, confirmed and timeout was successfully executed by the treatment team. A digital exam revealed external hemorrhoids and revealed decreased sphincter tone The Pentax EC-3490Li endoscope was introduced through the anus and advanced to the cecum, which was identified by both the appendix and ileocecal valve. The instrument was then slowly withdrawn as the colon was fully examined. COLON FINDINGS: Moderate diverticulosis was noted in the sigmoid colon. No bleeding was noted from the diverticulosis. A circumferential patch of colitis was found in the rectum. The mucosa was congested and erythematous. 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 Destruction of tissue via ablation was attempted. Bleeding from maneuver treated with cautery. Argon plasma coagulation was used. Care was given to ensure that the lumen was suctioned well. 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 Destruction of tissue via ablation was attempted. Bleeding from maneuver treated with cautery. Argon plasma coagulation was used. Care was given to ensure that the lumen was suctioned well. Retroflexed views revealed internal hemorrhoids and Retroflexed views revealed medium internal hemorrhoids The scope was then completely withdrawn from the patient and the procedure terminated. PROCEDURE WITHDRAWAL TIME:6minutes ADVERSE EVENTS: There were no complications. IMPRESSIONS: 1. Moderate diverticulosis was noted in the sigmoid colon 2. Circumferential colitis was found in the rectum; The mucosa was congested and erythematous; This is consistent with radiation induced colitis.; Destruction of tissue via ablation was attempted 3. 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 Retroflexed views revealed internal hemorrhoids 5. Retroflexed views revealed medium internal hemorrhoids 6. Revealed external hemorrhoids 7. Revealed decreased sphincter tone RECOMMENDATIONS: 1. Benefiber 2 tsp daily 2. Yearly hemoccult 3. No seeds, nuts and popcorn in diet RECALL: Return 1 year Colonoscopy Jaky Madden MD eSigned: Jaky Madden MD 02/20/2018 10:24 AM cc: Kashif Plascencia M.D. PATIENT NAME: Bismark Beck MR#: [id number]
[2018-02-20 11:30] VITALS: BP 133/88; PULSE 85; RESP 20; TEMP 97.9; O2SAT 97
== END ==
LOC: HSDC 08:09
PROVIDERS: ATTEND Internal Medicine Gastroenterology
DX: K22.70 Barrett's esophagus without dysplasia (principal); K29.70 Gastritis, unspecified, without bleeding; K20.9 Esophagitis, unspecified; R13.10 Dysphagia, unspecified; K55.21 Angiodysplasia of colon with hemorrhage; K62.5 Hemorrhage of anus and rectum; K64.4 Residual hemorrhoidal skin tags; K64.8 Other hemorrhoids; K57.30 Diverticulosis of large intestine without perforation or abscess without bleeding; K52.0 Gastroenteritis and colitis due to radiation
CPT/HCPCS: 00813; 43239; 45388; 88305; J2370